=== PATIENT | female | born 1940 | race Caucasian/White ===

== ENCOUNTER 2017-10-03 23:01 | Emergency (ER) | payer MEDICARE, BC, SELFPAY ==
[2017-10-03 23:02] VITALS: BP 164/92; PULSE 101; RESP 19; TEMP 36; O2SAT 97; BMI 34.7
--- NOTE | 2017-10-03 23:10 | EKG12_ITS ---
Test Reason : HTN Blood Pressure : / mmHG Vent. Rate : 106 BPM Atrial Rate : 101 BPM P-R Int : 000 ms QRS Dur : 078 ms QT Int : 362 ms P-R-T Axes : 000 001 068 degrees QTc Int : 480 ms Atrial fibrillation Inferior infarct , age undetermined Abnormal ECG Confirmed by JUDAH MARTINEZ, DAISY ([id number]), senior technical editor CHAPITO HILLIARD ([id number]) on 10/05/2017 3:30:17 PM Referred By: Confirmed By:DAISY SO MD
--- NOTE | 2017-10-03 23:15 | ED.RN ---
called for ekg. pt assisted to bathroom by . pt reports, I DO NOT NEED HELP I WILL BE FINE.
--- NOTE | 2017-10-03 23:42 | NURSING ---
NO OLD EKG'S IN MUSE
--- NOTE | 2017-10-04 01:27 | ED.DCSUM_ITS ---
- ER Visit Summary Date of Service: 10/04/17 Chief Complaint: Elevated blood pressure History of Present Illness: The patient is a 76 F presents after calling pharmacist about elevated blood pressure and heart rate at home. History of chronic A. fib. She is on metoprolol 50 mg once a day. No missed doses. Taken off flecainide a week ago by Dr. Mata due to not helping her A. fib. No chest pains. States had transient shortness of breath earlier today. No current symptoms. No cough. No headache, visual changes, nausea or vomiting. Unclear on her normal baseline blood pressure or heart rate at this time. She had a home INR 2.6 today. Physical Examination: General: Alert and oriented ?3, no acute distress HEENT: Normocephalic, atraumatic. Moist mucosa membranes Neck: supple, nontender. Cardiovascular: Regular rate and rhythm, no murmurs Respiratory: Normal breath sounds, symmetric, no distress Abdomen: Soft, nontender, nondistended Extremities: Nontender, no edema, pulses intact ?4 Neuro: no focal neurological deficits. Test Results: EKG A. fib rate of 106, no ST or T-wave changes. Emergency Department Course and Treatment: Patient is a blood pressure 164/92. Recheck 147/95. Patient asymptomatic. EKG A. fib 106, reevaluation she was A. fib in the 90s. Currently back to baseline. Discussed with patient spouse in the room to keep blood pressure checks in the morning at night. Her INR is 2.6 today. She will follow-up as an outpatient, she return if any worsening symptoms. Patient understands and agrees with plan. Treatment Plan: [] Disposition: Discharge Impression: 1. Elevated blood pressure 2. Chronic A. fib This note was generated with [employer] software. It may contain incorrect words, spelling, and punctuation that were not noted in review of the chart prior to signing ED Disposition - Plan for ED Patient: Disposition: Home or Assisted Living Chief Complaint: Hypertension Diagnosis: Elevated blood pressure reading with diagnosis of hypertension, Chronic atrial fibrillation Instructions: ED HTN Established Referrals: Darek Aquino MD [Primary Care Provider] - 3-5 Days Additional Instructions: Take blood pressure recordings in the morning and at night. Monitor symptoms and follow-up with your doctor.
[2017-10-04 01:38] VITALS: BP 147/90; PULSE 99; RESP 18; O2SAT 99
== END 2017-10-04 01:39 | disposition home or self-care (01) ==
LOC: ED 10-04 01:31
PROVIDERS: Emergency Provider Emergency Medicine; Family Provider Internal Medicine; PCP Internal Medicine
DX: I10 Essential (primary) hypertension (principal); I48.2 Chronic atrial fibrillation; E11.9 Type 2 diabetes mellitus without complications; E78.00 Pure hypercholesterolemia, unspecified; Z79.82 Long term (current) use of aspirin; Z79.84 Long term (current) use of oral hypoglycemic drugs; Z79.899 Other long term (current) drug therapy
CPT/HCPCS: 93005; 99282

== ENCOUNTER 2018-05-25 16:14 | Inpatient (IN) | payer MEDICARE, BC, SELFPAY ==
[2018-05-25] VITALS (12 sets, daily range): BP systolic 136–167; BP diastolic 74–121; PULSE 100–122; RESP 18–24; TEMP 36.2–37.2; O2SAT 94–100; BMI 34.2; BMI 33.0; BMI 33.1
--- NOTE | 2018-05-25 16:32 | EKG12_ITS ---
Test Reason : LOWER EXT Blood Pressure : / mmHG Vent. Rate : 106 BPM Atrial Rate : 105 BPM P-R Int : 000 ms QRS Dur : 078 ms QT Int : 346 ms P-R-T Axes : 000 048 073 degrees QTc Int : 459 ms Atrial fibrillation with rapid ventricular response Nonspecific T wave abnormality Abnormal ECG Confirmed by JUDAH MARTINEZ, DAISY ([id number]), purchase request editor CHAPITO HILLIARD ([id number]) on 05/29/2018 3:56:17 PM Referred By: CIERRA Confirmed By:DAISY SO MD
--- NOTE | 2018-05-25 16:32 | CT_ITS ---
STUDY: CT BRAIN WITHOUT CONTRAST REASON FOR EXAM: Female, 77 years old. Headache after a fall RADIATION DOSAGE (If Supplied By Facility): CTDIvol = ( 44.99 ) mGy, DLP = ( 745.49 ) mGycm TECHNIQUE: Transaxial CT imaging of the brain was performed without administration of intravenous contrast material. Individualized dose optimization techniques were used for this CT. COMPARISON: None. FINDINGS: Normal soft tissue structures. Normal calvarium. There is mild cerebral atrophy with widening of the extra-axial spaces and ventricular dilatation. Normal white matter tracts of the cerebral hemispheres. Normal basal ganglia and thalami. Normal brainstem. Normal cerebellum. There is no intracranial hemorrhage. Old left parietal lobe infarct Normal visualized paranasal sinuses. CT/Brain/Head without Contrast IMPRESSION: Chronic involutional changes of the brain. No acute hemorrhage No demonstrated skull fracture or scalp hematoma Electronically Signed: Bishop Marino MD at 17:17 EDT , Service support ,
--- NOTE | 2018-05-25 16:33 | RAD_ITS ---
STUDY: X-RAY - PELVIS AND RIGHT HIP REASON FOR EXAM: Female, 77 years old. Pain after a fall TECHNIQUE: Radiological exam, hip, unilateral, with pelvis when performed; 2 or 3 views. 3 views. COMPARISON: None. FINDINGS: There is a non-specific bowel gas pattern. Normal visualized soft tissue structures. There is diffuse demineralization of the osseous structures. There is narrowing with cortical sclerosis and osteophyte formation of the sacroiliac joint consistent with degenerative osteoarthritic changes. Normal bilateral superior and inferior pubic rami. Normal pubic symphysis. Normal bilateral ischial tuberosities. There are subtle serpiginous lucencies in the right femoral head not seen on the left and a subtle fracture is suspected. Normal acetabulum. There is mild articular joint space narrowing of the hip. Surgical hardware in the proximal femur intact and free of complication. RAD/HIP, UNI W/ Pelvis 2-3 Views IMPRESSION: Serpiginous lucencies in the right femoral head suspicious for nondisplaced fracture. Consider CT for confirmation. Degenerative arthrosis Surgical hardware in the proximal right femur free of complication Electronically Signed: Bishop Marino MD at 18:05 EDT , Service support ,
[2018-05-25 16:51] LABS: Absolute Lymphocyte Count 1.24 X10^3/ul (0.83-4.51); Absolute Neutrophil Count 8.4 X10^3/uL (2.0-7.7); Basophil# 0.02 X10^3/uL; Basophil% 0.2 % (0-1); Eosinophil# 0.02 X10^3/uL; Eosinophils% 0.2 % (0-5); Hematocrit 42.7 % (37-47); Hemoglobin 14.1 g/dl (12.0-15.0); Lymphocyte # 1.24 X10^3/ul (4.0); Lymphocyte % 12.1 % (19-41); Mean Corpuscular Hgb 30.8 pg (27.0-32.0); Mean Corpuscular Volume 93.2 fL (81-99); Mean Platelet Vol. 10.1 fl (6.2-12.0); Monocyte# 0.48 X10^3/uL; Monocyte% 4.7 % (0-10); Neutrophil # 8.39 X10^3/uL (2.7-7.7); Neutrophil % 81.7 % (47-70); Platelet Count 241 K/mm3 (150-450); RBC Distribution Width CV 12.5 % (11.6-14.6); RBC Distribution Width SD 42.1 fl (35.1-43.9); Red Blood Count 4.58 M/mm3 (4.2-5.4); White Blood Count 10.3 K/mm3 (4.4-11.0)
[2018-05-25 17:02] LABS: International Normalized Ratio 2.4; Prothrombin Time (Protime)PT. 26.4 SECONDS (11.7-14.9)
--- NOTE | 2018-05-25 17:10 | RAD_ITS ---
STUDY: X-RAY CHEST REASON FOR EXAM: Female, 77 years old. Chest pain after trauma TECHNIQUE: Single AP portable view of the chest. COMPARISON: None. FINDINGS: EKG leads overlie the chest The lungs are clear and expanded. There is no demonstrated pleural abnormality. Normal size heart. Normal mediastinum and ralph. Normal visualized pulmonary arteries. Normal visualized aortic arch and descending thoracic aorta. Normal visualized thoracic spine. Normal visualized ribs, clavicles, and shoulders. There is no demonstrated abnormality of the visualized soft tissue structures of the upper abdomen. RAD/Chest 1 View IMPRESSION: No acute pulmonary process Electronically Signed: Bishop Marino MD at 18:00 EDT , Service support ,
[2018-05-25 17:11] LABS: POSITIVE COUNT NO; POSITIVE DIFFERENTIAL NO; POSITIVE MORPHOLOGY NO
[2018-05-25 17:15] LABS: AST(SGOT) 19 U/L (15-37); Alanine Aminotransfer ALT/SGPT 22 U/L (13-56); Albumin, Serum 3.8 g/dL (3.2-5.0); Alkaline Phosphatase 79 U/L (45-117); Anion Gap 13 (5-15); BUN 8 mg/dL (7-18); BUN/Creat Ratio 7.5 RATIO (10-20); Calcium,Total 8.8 mg/dL (8.5-10.1); Chloride 100 mmol/L (98-107); Creatinine, Serum 1.06 mg/dL (0.55-1.02); EST Glomerular Filtration Rate 53 mL/min (>60); Est Glom Filt Rate - Afr Amer 65 mL/min (>60); Estimated Creatinine Clearance 39.99 ml/min; Globulin 3.9 g/dL (2.2-4.2); Glucose 208 mg/dL (74-106); Protein, Total 7.7 g/dL (6.4-8.2); Sodium Level 136 mmol/L (136-145)
--- NOTE | 2018-05-25 18:26 | ED.RN ---
family pcp calls and states that morphine in small doses should work for pt. dr keys
[2018-05-25] MEDS: LORazepam 2 MG/ML Syringe 0.5 MG IV (18:29)
--- NOTE | 2018-05-25 18:55 | ED.RN ---
pt o2 sat drops. pt placed on 02. pt had severe whole body shaking after ativan. dr in room. pt o2 dropped. pt placed on nonrebreather. family at bedside
[2018-05-25] MEDS: Ondansetron 4 MG/2 ML Vial IV (19:06)
--- NOTE | 2018-05-25 19:25 | CT_ITS ---
STUDY: CT RIGHT FEMUR WITHOUT CONTRAST REASON FOR EXAM: Female, 77 years old. Fall. Right hip pain. Abnormal x-ray RADIATION DOSAGE (If Supplied By Facility): CTDIvol = ( 28.81 ) mGy, DLP = ( 1264.20 ) mGycm TECHNIQUE: Transaxial CT imaging of the femur was performed. Sagittal and coronal images were reconstructed. Individualized dose optimization techniques were used for this CT. COMPARISON: X-ray. FINDINGS: There is intramedullary gerard in the shaft of the femur extending to the knee. There is acute impacted subcapital fracture of the right femoral neck. There is acute nondisplaced fracture of the right inferior pubic ramus. There are atherosclerotic calcifications. There is Calero catheter in the bladder. Normal size uterus. No dilated loops of bowel. Arthritic change of the lower spine. CT/Extremity Lower without Contra IMPRESSION: Subcapital fracture of the right femoral neck. Fracture of the right inferior pubic ramus. Electronically Signed: Hung Mckenna MD at 20:04 EDT , Service support ,
--- NOTE | 2018-05-25 20:12 | ED.VISSUMM ---
- ER Visit Summary Date of Service: 05/25/18 Chief Complaint: Right hip injury History of Present Illness: The patient is a 77 F who presents by private vehicle after a fall. She went out to dinner was walking in the parking lot (it is a very rainy day) when she went down a slight decline in due to a nurse she was unable to stop. She fell down causing injury to the right hip. states that she hit her head. Patient denies this. No reported loss of conscious. Patient is on Coumadin for atrial fibrillation. Surgical history is significant for right knee replacement. This was complicated last year when she sustained a right periprosthetic femur fracture. tells me she was treated at [facility]. Though he also tells me that she gets all of her care at [facility]. Patient lists allergies to all narcotics. Physical Examination: Afebrile vital signs are stable. Gen: Well-nourished well-developed Head: Normocephalic atraumatic Eyes: Perrl EOMI ENT: TMs clear no rhinorrhea moist mucous membranes Neck: Supple no lymphadenopathy no JVD nontender CVS: Irregularly irregular heart rhythm tachycardic no murmurs normal S1-S2 Respiratory: No distress clear to auscultation bilaterally chest nontender Abdomen: Soft nontender nondistended normal bowel sounds no masses Back: Nontender Extremity: Right leg shows intact distal pulses and sensation. Pain with logroll. Limited range of motion at the hip joint. No ecchymosis seen. No breaks in the skin. Skin: Normal color no rash Neuro: alert orientated ?3 CN II-XII intact normal strength sensation reflexes Psych: Normal affect normal mood Test Results: X-rays revealed a probable neck fracture. However after reviewing the x-rays myself and the read a asked for a hip CT which demonstrates a subcapital fracture. Brain CT demonstrates no fracture or intracranial hemorrhage. Chest x-ray negative. Basic labs were obtained showed a INR 2.4. EKG A. fib with a rate of 106. Emergency Department Course and Treatment: Patient was having spasms of her musculature and was given 0.5 mg of Ativan. Shortly thereafter she began to become tachycardic and tachypneic. She was shaking. After that the patient became somnolent and required supplemental oxygen. She is gradually improving. Nursing discussed with the that because of her allergies to all narcotics she was not receiving a narcotic. Family spoke with her primary care doctor who stated that she could get morphine in small amounts. Due to her being somnolent and in no obvious distress we did not give any more medications. The patient was discussed with Dr. Griffin and night hospitalist. Plan is admission to the hospital. He was asked that the INR be reversed so we ordered FFP. Impression: 1. Right subcapital hip fracture 2. Coumadin coagulopathy This note was generated with [employer] dictation software. It may contain incorrect words, spelling, and punctuation that were not noted in review of the chart prior to signing ED Disposition - Plan for ED Patient: Disposition: Acute Care [facility] Chief Complaint: Lower Extremity Injury
--- NOTE | 2018-05-25 20:45 | HP.PCM_ITS ---
Problem List (1) Fracture of right femur Status: Acute (2) Chronic atrial fibrillation Status: Chronic (3) Atrial fibrillation with RVR Status: Acute History of Present Illness Date of Admission: 05/25/18 Chief Complaint: fall The patient is a 77 year old F with a significant history of chronic atrial fib fibrillation; hypertension; hyperlipidemia and right knee joint replacement and right femur surgery who presents with a fall. Patient went to a restaurant and fell while leaving the restaurant. Reportedly it was raining. She reported right hip pain after the fall. Her family report that patient had knee replacement 5 years ago in her right knee and right hip replacement about a year and a half ago. Reportedly she is weak at her right lower extremities because of above interventions. Her reported that patient was dizzy earlier in the day. Patient complains of back pain that her family attributes to patient's fall. At the emergency department patient was given Ativan and she became very lethargic. She was hypoxic at the ED and required non rebreather mask.. Reportedly patient has multiple allergies to pain medication. Family talked to PCP and per PCP it is okay to give patient low-dose morphine as needed for pain. Emergency department doctor talked to Dr. Griffin, orthopedic surgeon and plan was to do pinning in a.m. Patient is on Coumadin for A. fib. At the emergency department her INR was noted to be 2.4. Past Medical History Past Medical History (Chronic Problems): Chronic Problems (Last Reviewed 05/26/18 @ 00:25 by Edvin Cruz MD) History of right knee joint replacement (Chronic) [facility] current use of anticoagulant (Chronic) Chronic atrial fibrillation (Chronic) Hypertension (Chronic) Hyperlipidemia (Chronic) Medical History: Medical History (Last Reviewed 05/26/18 @ 00:25 by Edvin Cruz MD) [facility] current use of anticoagulant (Chronic) Z79.01 Chronic atrial fibrillation (Chronic) I48.2 Hypertension (Chronic) I10 Hyperlipidemia (Chronic) E78.5 Allergies enalapril Allergy (Severe, Verified 10/03/17 23:02) ANGIOEDEMA latex Allergy (Severe, Verified 10/03/17 23:02) Hives, rash Penicillins Allergy (Severe, Verified 10/03/17 23:02) Hives shellfish derived Allergy (Severe, Verified 10/03/17 23:02) Hives lisinopril Allergy (Verified 10/03/17 23:02) Shortness of breath cortisone Adverse Reaction (Severe, Verified 10/03/17 23:02) Knee swelled and severe pain with injection of cortisone IVP dye Allergy (Severe, Uncoded 10/03/17 23:02) Head and neck burning adhesive bandages Allergy (Intermediate, Uncoded 10/03/17 23:02) Burning rash narcotics Adverse Reaction (Severe, Uncoded 10/03/17 23:02) confusion Home Medications: Ambulatory Orders Medication Instructions Recorded Aspirin E.C. [Ecotrin] 81 mg PO DAILY@0800 07/17/17 Levothyroxine [Synthroid] 50 mcg PO DAILY 07/17/17 metformin ER 500 mg 24 hr 1,000 mg PO BID 09/16/17 tablet,extended release warfarin 6 mg tablet 6 mg PO DAILY 09/16/17 clonazepam 0.5 mg tablet 0.5 mg PO BID PRN tab 09/20/17 Citalopram [Celexa] 40 mg PO DAILY 10/04/17 Flecainide [Tambocor] 100 mg PO DAILY 10/04/17 Furosemide [Lasix] 20 mg PO DAILY 10/04/17 Losartan/Hydrochlorothiazide 1 tab PO DAILY 05/25/18 [Losartan-Hctz 100-25 mg Tab] Surgical History: Surgical History (Last Reviewed 05/26/18 @ 00:25 by Edvin Cruz MD) History of right knee joint replacement (Chronic) Z96.651 Surgical History: - - History of right hip replacement Lives: Spouse/ Significant Other Smoking Status: Never smoker Alcohol: None - *Family History Maternal Family History: Family History (Last Reviewed 05/26/18 @ 00:37 by Edvin Cruz MD) Mother CAD (coronary artery disease) Myocardial infarction Paternal Family History: Family History (Last Reviewed 05/26/18 @ 00:37 by Edvin Cruz MD) Mother CAD (coronary artery disease) Myocardial infarction Review of Systems Constitutional: Denies: Chills, Fever, Weight Change HEENT: Denies: Head Aches, Sinus Congestion, Sinus Drainage Cardiovascular: Denies: Chest Pain, Palpitations Respiratory: Denies: Cough, Shortness of breath at rest, Sputum production Gastrointestinal: Denies: Abdominal Pain, Nausea, Vomiting Genitourinary: Denies: Dysuria Musculoskeletal: Reports: Back Pain, - - Right hip pain. Denies: Neck Pain Skin: Denies: Rash, Wounds Neurological: Denies: Numbness, Tingling, Focal weakness Psychiatric: Denies: Anxiety, Depression, Homicidal Ideations, Suicidal Ideations Hematologic/ Lymphatic: Denies: Easy Bruising, Easy Bleeding VTE Information - Inpt Only VTE Present on Admission: No VTE Mechan Device Prophylaxis: SCD's VTE Pharm Prophylaxis ordered?: No Reason prophylaxis not ordered:: Treatment Not Indicated - On recent anticoagulation. Patient Problems: Active and Suspected Problems (Last Reviewed 05/26/18 @ 00:25 by Edvin Cruz MD) Fracture of right femur (Acute) Atrial fibrillation with RVR (Acute) - Physical Exam General: Lethargic HEENT: Atraumatic, PERRLA, EOMI, Normocephalic Neck: Supple, No JVD, Negative Carotid Bruits Lungs: Clear to auscultation, Normal air movement Cardiovascular: Regular rate, No murmurs Abdomen: Bowel Sounds Present, Soft, Non Tender Extremities: No edema, Capillary Refill Less than 3 Seconds, Tenderness - Right ankle Skin: No rashes, No breakdown Musculoskeletal: No Tenderness to Palpation of Joints or Extremities Neurological: Cranial nerves II-XII grossly intact Psych/Mental Status: Normal Affect, Appropriate Vital Signs Temp Pulse Resp BP Pulse Ox 97.2 F L 109 H 20 H 149/79 H 99 05/25/18 16:15 05/25/18 20:18 05/25/18 20:18 05/25/18 20:18 05/25/18 20:18 Oxygen Flow Rate (L/min) 15 Oxygen Delivery Method Non-Rebreather Weight: 93.455 kg Body Mass Index (BMI) 34.2 Laboratory Tests Past 24 Hrs 05/25/18 05/25/18 05/25/18 16:25 16:25 16:25 WBC 10.3 RBC 4.58 Hgb 14.1 Hct 42.7 MCV 93.2 MCH 30.8 MCHC 33.0 RDW 12.5 RDW Differential 42.1 Plt Count 241 MPV 10.1 Immature Gran % (Auto) 1.100 H Neut % (Auto) 81.7 H Lymph % (Auto) 12.1 L [place] % (Auto) 4.7 Eos % (Auto) 0.2 Baso % (Auto) 0.2 Absolute Neuts (auto) 8.4 H Absolute Lymphs (auto) 1.24 Total Counted Not Reportable PT 26.4 H INR 2.4 APTT 52.0 H Sodium 136 Potassium 4.0 Chloride 100 Carbon Dioxide 23.0 Anion Gap 13 BUN 8 Creatinine 1.06 H Estim Creat Clear Calc 39.99 Est GFR (MDRD) Af Amer 65 Est GFR (MDRD) Non-Af 53 L BUN/Creatinine Ratio 7.5 L Glucose 208 H Calcium 8.8 Total Bilirubin 1.10 H AST 19 ALT 22 Alkaline Phosphatase 79 Total Protein 7.7 Albumin 3.8 Globulin 3.9 Albumin/Globulin Ratio 1.0 Blood Type 05/25/18 16:25 WBC RBC Hgb Hct MCV MCH MCHC RDW RDW Differential Plt Count MPV Immature Gran % (Auto) Neut % (Auto) Lymph % (Auto) [place] % (Auto) Eos % (Auto) Baso % (Auto) Absolute Neuts (auto) Absolute Lymphs (auto) Total Counted PT INR APTT Sodium Potassium Chloride Carbon Dioxide Anion Gap BUN Creatinine Estim Creat Clear Calc Est GFR (MDRD) Af Amer Est GFR (MDRD) Non-Af BUN/Creatinine Ratio Glucose Calcium Total Bilirubin AST ALT Alkaline Phosphatase Total Protein Albumin Globulin Albumin/Globulin Ratio Blood Type Pending Assessment/Plan All Active Problems (Last Reviewed 05/26/18 @ 00:25 by Edvin Cruz MD) Fracture of right femur (Acute) Atrial fibrillation with RVR (Acute) The patient is a 77 year old F with a significant history of chronic atrial fib fibrillation; hypertension; hyperlipidemia and right knee joint replacement and right femur surgery who presents with a fall and found to have radiographic evidence of subcapital fracture of the right femoral neck; and fracture of the right inferior pubic ramus Subcapital fracture of the right femoral neck; and fracture of the right inferior pubic ramus. Hip/pelvis x-ray independently reviewed confirms subcutaneous lucency in the right femoral head suspicious for nondisplaced fracture. Lower extremity CT showed a subcapital fracture of the right femoral neck; and fracture of the right inferior pubic ramus. Reportedly patient is sensitive to many narcotic pain medication and she was severely lethargic after receiving Ativan at emergency department and was found to be hypoxic requiring nonrebreather mask. Because of persistent pain will order morphine 0.5 mg IV every 6 hours as needed for pain Tylenol scheduled for pain. Aspirin held because of surgery. Fresh frozen plasma at emergency department not given. Will order vitamin K 5 mg IV x1 dose; and repeat INR late morning. Plan is to get INR below 1.5 for orthopedic procedure. Patient kept n.p.o. for procedure Patient has no chest pain. EKG showed A. fib with rapid ventricular response (106). On monitor patient was ranging from 100 to mid 130s. Will order echocardiogram. If echocardiogram is ok patient will be low risk for orthopedic procedure. Recommend minimal sedation for procedure and careful respiratory monitoring topher-operatively. Anticipate patient may need to be placed on non invasive ventilation after her procedure judging from how she became lethargic and hypoxic with 0.5mg of ativan at the ED. Orthopedic consult. Right ankle pain. From trauma from fall X-ray right ankle ordered. Lumbar Pain Likely from trauma from fall Shared decision with family to get imaging. Lumbar X-ray ordered Fall Etiology of her fall is unclear at this time. It could be mechanical from her right-sided weakness; it could also be from her Afib. Patient worked with PT and OT Vitamin B12 and vitamin D ordered. A. fib with RVR Placed on PCU for telemetry monitoring. Flecainide continued Cardizem bolus and drip ordered. Coumadin on hold because of surgery vitamin K given to reverse INR. Diabetes Blood glucose not within goal at the time of admission. Home metformin held. Correction scale insulin with sliding scale ordered. DVT prophylaxis With INR therapeutic and patient having surgery chemical anticoagulation was not started. SCD ordered. Code Visit Inpatient E&M: 93128 Init Hosp L3
--- NOTE | 2018-05-25 22:02 | RAD_ITS ---
HISTORY: Falling injury Comparison: None Findings: No fracture, dislocation, or acute disease identified. The tibiotalar joint space appears preserved. The ankle mortise is not widened. As visualized, the soft tissues are negative. Plantar calcaneal spur. Incidental note of degenerative arthritis of the right midfoot. RAD/Ankle 2 Views IMPRESSION: 1. Negative for fracture or acute osseous abnormality. 2. Chronic changes, as above. at 0007 Reported and signed by: Sean Marte MD Electronically Signed: Sean Marte, at 0:04 EDT Tel , Service support ,
[2018-05-25 22:50] LABS: Vitamin B12 413 pg/mL (211-911)
[2018-05-25] MEDS: Insulin Lispro 100 UNIT/ML INSULN.PEN SQ (23:02)
[2018-05-25] MEDS: dilTIAZem 25 MG/5 ML Vial 5 MG IV BOLUS (23:03)
[2018-05-25] MEDS: Acetaminophen 500 MG Tablet PO (23:04)
[2018-05-26] VITALS (31 sets, daily range): BP systolic 116–159; BP diastolic 65–94; PULSE 86–117; RESP 16–32; TEMP 36.1–37.6; O2SAT 90–98; BMI 33.0; BMI 33.1
[2018-05-26] MEDS: Morphine 2 MG/ML Syringe 0.5 MG IV ×2 (00:43→06:43)
[2018-05-26] MEDS: 0.9% NaCl Peripheral Flush Adult/Peds IV ×3 (00:43→06:42)
[2018-05-26 00:46] LABS: Bedside Glucose 205 mg/dL (70-110)
--- NOTE | 2018-05-26 00:52 | ECHOD_ITS ---
Reason For Study: Afib/Flutter Procedure This was a 2D Doppler, Color Flow transthoracic echocardiogram. Technically difficult due to patient condition. Unable to utilize Definity due to increased pressures, and unable to roll patient onto left side due to hip fracture. Exam performed portable in patient room. Left Ventricle Normal LV size. Left ventricular systolic function is normal. The estimated ejection fraction is 55 %. Stage 3 diastolic dysfunction. No regional wall motion abnormalities noted. Right Ventricle Normal RV size. Mild global right ventricular systolic dysfunction. Atria The left atrium is moderately enlarged. The right atrium is mildly enlarged. Mitral Valve Normal mitral valve. Mild (1+) eccentric mitral valve insufficiency. Tricuspid Valve Normal tricuspid valve. Mild to moderate (1-2+) tricuspid valve insufficiency. Pulmonary artery systolic pressure is 55 mmHg. Moderate pulmonary hypertension. Aortic Valve Normal aortic valve. Trisinus/trileaflet aortic valve. Pulmonic Valve Normal pulmonic valve. Great Vessels Normal aortic root. The pulmonary artery is normal size. Normal inferior vena cava. Pericardium/Pleural No pericardial effusion. MMode/2D Measurements & Calculations LVIDd: 3.5 cm IVSd: 1.5 cm Ao root diam: 3.7 cm LVIDs: 1.7 cm LVPWd: 1.0 cm LA dimension: 3.9 cm RVDd: 3.5 cm FS: 51.1 % LAV(MOD-bp): 66.8 ml LA A4 area: 24.5 cm2 RA A4 area: 21.5 cm2 LAV(MOD-bp) Indexed: 33.9 ml/m2 LAV(MOD-sp2): 63.6 ml LAV(MOD-sp4): 69.8 ml Time Measurements MV dec time: 0.16 sec Doppler Measurements & Calculations MV E max sky: 98.1 cm/sec Lat Peak E' Sky: 7.7 cm/sec Med Peak E' Sky: 7.4 cm/sec MV A max sky: 31.3 cm/sec E/E' lat: 12.7 E/E' med: 13.2 MV E/A: 3.1 MV V2 max: 112.2 cm/sec Ao V2 max: 82.0 cm/sec LV V1 max: 80.7 cm/sec MV max P.1 mmHg Ao max P.7 mmHg LV V1 max P.6 mmHg MV V2 mean: 56.7 cm/sec Ao V2 mean: 59.7 cm/sec LV V1 mean P.4 mmHg MV mean P.6 mmHg Ao mean P.6 mmHg LV V1 mean: 55.9 cm/sec MV V2 VTI: 26.4 cm Ao V2 VTI: 14.9 cm LV V1 VTI: 15.3 cm PA V2 max: 84.4 cm/sec TR max sky: 353.7 cm/sec TR max P.1 mmHg Interpretation Summary Normal LV size. Left ventricular systolic function is normal. The estimated ejection fraction is 55 %. Stage 3 diastolic dysfunction. The left atrium is moderately enlarged. Pulmonary artery systolic pressure is 55 mmHg. Moderate pulmonary hypertension. Ordering Physician: Edvin Cruz Referring Physician: Darek Aquino Performed By: Curtis Fernández RCS
[2018-05-26] MEDS: Acetaminophen 500 MG Tablet PO ×3 (05:44→23:35)
--- NOTE | 2018-05-26 05:55 | EKG12_ITS ---
Test Reason : AM EKG Blood Pressure : / mmHG Vent. Rate : 088 BPM Atrial Rate : 104 BPM P-R Int : 000 ms QRS Dur : 080 ms QT Int : 344 ms P-R-T Axes : 000 079 254 degrees QTc Int : 416 ms Atrial fibrillation Cannot rule out Inferior infarct , age undetermined Abnormal ECG When compared with ECG of 25-MAY-2018 17:21, MANUAL COMPARISON REQUIRED, DATA IS UNCONFIRMED Confirmed by JUDAH MARTINEZ, DAISY ([id number]), news assignment editor CHAPITO HILLIARD ([id number]) on 06/01/2018 4:09:55 PM Referred By: MAYELIN Confirmed By:DAISY SO MD
[2018-05-26 05:56] LABS: Bedside Glucose 191 mg/dL (70-110)
[2018-05-26 06:00] LABS: Hematocrit 40.6 % (37-47); Hemoglobin 13.2 g/dl (12.0-15.0); Mean Corp Hgb Conc 32.5 g/gl (32-36); Mean Corpuscular Hgb 30.2 pg (27.0-32.0); Mean Corpuscular Volume 92.9 fL (81-99); Platelet Count 207 K/mm3 (150-450); RBC Distribution Width CV 12.7 % (11.6-14.6); RBC Distribution Width SD 42.4 fl (35.1-43.9); Red Blood Count 4.37 M/mm3 (4.2-5.4); White Blood Count 9.5 K/mm3 (4.4-11.0)
[2018-05-26 06:03] LABS: Scan Indicated on CBC? Y/N NO
[2018-05-26 06:04] LABS: International Normalized Ratio 1.6
[2018-05-26 06:29] LABS: Anion Gap 10 (5-15); BUN 12 mg/dL (7-18); Calcium,Total 8.6 mg/dL (8.5-10.1); Chloride 103 mmol/L (98-107); Creatinine, Serum 0.67 mg/dL (0.55-1.02); EST Glomerular Filtration Rate 91 mL/min (>60); Est Glom Filt Rate - Afr Amer 110 mL/min (>60); Estimated Creatinine Clearance 42.39 ml/min; Glucose 188 mg/dL (74-106); Potassium 3.8 mmol/L (3.5-5.1); Sodium Level 137 mmol/L (136-145)
[2018-05-26] MEDS: Insulin Lispro 100 UNIT/ML INSULN.PEN SQ (06:42)
--- NOTE | 2018-05-26 10:16 | CASEMGMT ---
RN SANDOR Assessment. Intro role of CM to patient who is very sleepy @ this time, and and daughter. Pt presented to ER with R hip and R inferior pubic ramus fracture after fall in restaurant. Plan is for surgery today. PCP: Dr. Aquino [facility] Prescription coverage: yes Living arrangements: Lives in one story home, 4 steps into home with her . Transportation: pt drives, but family can provide transportation if needed. DME: Walker, cane states pt was independent prior to admission, was not using ambulatory DME consistently. Was able to perform independent ADL's, but this was becoming more difficult for her. -Discussed PT/OT would be working with pt after surgery and we would review recommendations for assistance needed on dc. Discussed Inpt Rehab/SNF on dc for medical monitoring and rehabilitation. agrees pt may need higher level of care, but states she will want to go home. Discussed Home Health nursing and PT is available if pt returns home and anticipated visits would be 2-3x per week. RN SANDOR let family know CM/SW will follow after surgery and assist with any dc need. DC PLAN: undetermined
--- NOTE | 2018-05-26 10:45 | PCM.PN.HOSP ---
Patient Problems: Active and Suspected Problems (Last Reviewed 05/26/18 @ 00:25 by Edvin Cruz MD) Fracture of right femur (Acute) Atrial fibrillation with RVR (Acute) Subjective: still with pain, but dozing off. Vitals/I&O's: Vital Signs Temp Pulse Resp BP Pulse Ox 36.4 C L 104 H 23 H 141/94 H 95 05/26/18 07:00 05/26/18 07:16 05/26/18 07:00 05/26/18 07:00 05/26/18 07:00 Oxygen Flow Rate (L/min) 3 Oxygen Delivery Method Nasal Cannula Weight: 90.2 kg Body Mass Index (BMI) 33.0 Intake and Output for Last 24 Hours 05/24/18 05/25/18 05/26/18 23:59 23:59 23:59 Intake Total 258.7 / 258.7 Output Total 625 / 625 Balance -366.3 / -366.3 General: No apparent distress, - - dozes off during my encounter. HEENT: Atraumatic, Normocephalic Oral: Moist Mucosa, No Gingival or Mucosal Lesions/ Ulcerations Neck: No Nodes, Thyroid Normal Size and Texture Lungs: Clear to auscultation, Normal air movement, No rhonchi, No wheeze Cardiovascular: Regular rate, Regular Rhythm, Normal S1, Normal S2 Abdomen: Bowel Sounds Present, Soft, Non Tender, Non-Distended, No Hepato-splenomegaly Extremities: No edema, No Calf Tenderness Skin: No rashes, No breakdown Musculoskeletal: No Tenderness to Palpation of Joints or Extremities, No Muscle Wasting Psych/Mental Status: Normal Affect, Appropriate Laboratory Results 05/25/18 16:25: WBC 10.3, RBC 4.58, Hgb 14.1, Hct 42.7, MCV 93.2, MCH 30.8, MCHC 33.0, RDW 12.5, RDW Differential 42.1, Plt Count 241, MPV 10.1, Immature Gran % (Auto) 1.100 H, Neut % (Auto) 81.7 H, Lymph % (Auto) 12.1 L, [place] % (Auto) 4.7, Eos % (Auto) 0.2, Baso % (Auto) 0.2, Absolute Neuts (auto) 8.4 H, Absolute Lymphs (auto) 1.24, Total Counted Not Reportable 05/25/18 16:25: PT 26.4 H, INR 2.4, APTT 52.0 H 05/25/18 16:25: Sodium 136, Potassium 4.0, Chloride 100, Carbon Dioxide 23.0, Anion Gap 13, BUN 8, Creatinine 1.06 H, Estim Creat Clear Calc 39.99, Est GFR (MDRD) Af Amer 65, Est GFR (MDRD) Non-Af 53 L, BUN/Creatinine Ratio 7.5 L, Glucose 208 H, Calcium 8.8, Total Bilirubin 1.10 H, AST 19, ALT 22, Alkaline Phosphatase 79, Total Protein 7.7, Albumin 3.8, Globulin 3.9, Albumin/Globulin Ratio 1.0 05/25/18 16:25: Blood Type O POSITIVE 05/25/18 16:25: Vitamin B12 413, Vitamin D 25-Hydroxy 15.0 L 05/25/18 22:48: POC Glucose 205 H 05/26/18 05:25: Sodium 137, Potassium 3.8, Chloride 103, Carbon Dioxide 24.0, Anion Gap 10, BUN 12, Creatinine 0.67, Estim Creat Clear Calc 42.39, Est GFR (MDRD) Af Amer 110, Est GFR (MDRD) Non-Af 91, BUN/Creatinine Ratio 18.0, Glucose 188 H, Calcium 8.6 05/26/18 05:25: WBC 9.5, RBC 4.37, Hgb 13.2, Hct 40.6, MCV 92.9, MCH 30.2, MCHC 32.5, RDW 12.7, RDW Differential 42.4, Plt Count 207, MPV 10.0 05/26/18 05:25: PT 19.0 H, INR 1.6 05/26/18 05:25: TSH 1.40 05/26/18 05:25: Hemoglobin A1c 6.0 05/26/18 05:43: POC Glucose 191 H Current Medications Acetaminophen (Tylenol) 500 mg PO Q6 [facility] Last Admin: 05/26/18 05:44 Dose: 500 mg Citalopram Hydrobromide (Celexa) 40 mg PO DAILY [facility] Dextrose (D50w Syringe) 0 gm IV X1 PRN; Protocol PRN Reason: Hypoglycemia Flecainide Acetate (Tambocor) 100 mg PO DAILY [facility] Furosemide (Lasix) 20 mg PO DAILY [facility] Glucagon () 1 mg IM .X1 PRN PRN Reason: Hypoglycemia Hydrochlorothiazide (Hctz) 25 mg PO DAILY [facility] Insulin Human Lispro (Humalog Kwikpen (Bkc)) 0 unit SQ Q6 JIMMY; Protocol Last Admin: 05/26/18 06:42 Dose: 2 units Levothyroxine Sodium (Synthroid) 50 mcg PO DAILY@0600 JIMMY Last Admin: 05/26/18 05:48 Dose: Not Given Losartan Potassium (Cozaar) 100 mg PO DAILY [facility] Magnesium Hydroxide (Milk Of Magnesia) 30 ml PO DAILY PRN PRN Reason: Constipation Morphine Sulfate () 0.5 mg IV Q6H PRN PRN PRN Reason: PAIN Last Admin: 05/26/18 06:43 Dose: 0.5 mg Nutritional Formula (Lactose Free) (Glucerna Shake) 120 ml PO TIDCM JIMMY Sodium Chloride () 5 - 30 ml IV UD PRN PRN Reason: SALINE FLUSH Last Admin: 05/26/18 06:42 Dose: 10 ml Medical Necessity - Tobacco Use Smoking Status: Never smoker Assessment/Plan All Active Problems (Last Reviewed 05/26/18 @ 00:25 by Edvin Cruz MD) Fracture of right femur (Acute) Atrial fibrillation with RVR (Acute) 1. right femoral neck fracture. plan for OR today around 1500 medically stable to proceed. 2. Afib with RVR currently rate controlled dc cardizem gtt continue flecanaide. may have been exacerbated by fall and pain 3. toxic encephalopathy 2/2 ativan pt very sensitive to medications dozing off during encounter d/w family, that with narcotics there needs to be a balance b/w pain control and function. Informed them that I will not be increasing her pain medications at this time. 4. DVT proph: SCDs for now. Code Visit Inpatient E&M: [id number] Subs Hosp L2
--- NOTE | 2018-05-26 10:52 | PN_ITS ---
Patient Problems: Active and Suspected Problems (Last Reviewed 05/26/18 @ 00:25 by Edvin Cruz MD) Fracture of right femur (Acute) Atrial fibrillation with RVR (Acute) Subjective: still with pain, but dozing off. Vitals/I&O's: Vital Signs Temp Pulse Resp BP Pulse Ox 36.4 C L 104 H 23 H 141/94 H 95 05/26/18 07:00 05/26/18 07:16 05/26/18 07:00 05/26/18 07:00 05/26/18 07:00 Oxygen Flow Rate (L/min) 3 Oxygen Delivery Method Nasal Cannula Weight: 90.2 kg Body Mass Index (BMI) 33.0 Intake and Output for Last 24 Hours 05/24/18 05/25/18 05/26/18 23:59 23:59 23:59 Intake Total 258.7 / 258.7 Output Total 625 / 625 Balance -366.3 / -366.3 General: No apparent distress, - - dozes off during my encounter. HEENT: Atraumatic, Normocephalic Oral: Moist Mucosa, No Gingival or Mucosal Lesions/ Ulcerations Neck: No Nodes, Thyroid Normal Size and Texture Lungs: Clear to auscultation, Normal air movement, No rhonchi, No wheeze Cardiovascular: Regular rate, Regular Rhythm, Normal S1, Normal S2 Abdomen: Bowel Sounds Present, Soft, Non Tender, Non-Distended, No Hepato-sp lenomegaly Extremities: No edema, No Calf Tenderness Skin: No rashes, No breakdown Musculoskeletal: No Tenderness to Palpation of Joints or Extremities, No Muscle Wasting Psych/Mental Status: Normal Affect, Appropriate Laboratory Results 05/25/18 16:25: WBC 10.3, RBC 4.58, Hgb 14.1, Hct 42.7, MCV 93.2, MCH 30.8, MCHC 33.0, RDW 12.5, RDW Differential 42.1, Plt Count 241, MPV 10.1, Immature Gran % (Auto) 1.100 H, Neut % (Auto) 81.7 H, Lymph % (Auto) 12.1 L, [place] % (Auto) 4.7, Eos % (Auto) 0.2, Baso % (Auto) 0.2, Absolute Neuts (auto) 8.4 H, Absolute Lymphs (auto) 1.24, Total Counted Not Reportable 05/25/18 16:25: PT 26.4 H, INR 2.4, APTT 52.0 H 05/25/18 16:25: Sodium 136, Potassium 4.0, Chloride 100, Carbon Dioxide 23.0, Anion Gap 13, BUN 8, Creatinine 1.06 H, Estim Creat Clear Calc 39.99, Est GFR (MDRD) Af Amer 65, Est GFR (MDRD) Non-Af 53 L, BUN/Creatinine Ratio 7.5 L, Glucose 208 H, Calcium 8.8, Total Bilirubin 1.10 H, AST 19, ALT 22, Alkaline Phosphatase 79, Total Protein 7.7, Albumin 3.8, Globulin 3.9, Albumin/Globulin Ratio 1.0 05/25/18 16:25: Blood Type O POSITIVE 05/25/18 16:25: Vitamin B12 413, Vitamin D 25-Hydroxy 15.0 L 05/25/18 22:48: POC Glucose 205 H 05/26/18 05:25: Sodium 137, Potassium 3.8, Chloride 103, Carbon Dioxide 24.0, Anion Gap 10, BUN 12, Creatinine 0.67, Estim Creat Clear Calc 42.39, Est GFR (MDRD) Af Amer 110, Est GFR (MDRD) Non-Af 91, BUN/Creatinine Ratio 18.0, Glucose 188 H, Calcium 8.6 05/26/18 05:25: WBC 9.5, RBC 4.37, Hgb 13.2, Hct 40.6, MCV 92.9, MCH 30.2, MCHC 32.5, RDW 12.7, RDW Differential 42.4, Plt Count 207, MPV 10.0 05/26/18 05:25: PT 19.0 H, INR 1.6 05/26/18 05:25: TSH 1.40 05/26/18 05:25: Hemoglobin A1c 6.0 05/26/18 05:43: POC Glucose 191 H Current Medications Acetaminophen (Tylenol) 500 mg PO Q6 COUNTS [facility]CLUDE 234 BEDS AT THE [facility] Last Admin: 05/26/18 05:44 Dose: 500 mg Citalopram Hydrobromide (Celexa) 40 mg PO DAILY COUNTS INCLUDE 234 BEDS AT THE [facility] Dextrose (D50w Syringe) 0 gm IV X1 PRN; Protocol PRN Reason: Hypoglycemia Flecainide Acetate (Tambocor) 100 mg PO DAILY COUNTS INCLUDE 234 BEDS AT THE [facility] Furosemide (Lasix) 20 mg PO DAILY COUNTS INCLUDE 234 BEDS AT THE [facility] Glucagon () 1 mg IM .X1 PRN PRN Reason: Hypoglycemia Hydrochlorothiazide (Hctz) 25 mg PO DAILY COUNTS INCLUDE 234 BEDS AT THE [facility] Insulin Human Lispro (Humalog Kwikpen (Bkc)) 0 unit SQ Q6 COUNTS INCLUDE 234 BEDS AT THE [facility]; Protocol Last Admin: 05/26/18 06:42 Dose: 2 units Levothyroxine Sodium (Synthroid) 50 mcg PO DAILY@0600 JIMMY Last Admin: 05/26/18 05:48 Dose: Not Given Losartan Potassium (Cozaar) 100 mg PO DAILY COUNTS INCLUDE 234 BEDS AT THE [facility] Magnesium Hydroxide (Milk Of Magnesia) 30 ml PO DAILY PRN PRN Reason: Constipation Morphine Sulfate () 0.5 mg IV Q6H PRN PRN PRN Reason: PAIN Last Admin: 05/26/18 06:43 Dose: 0.5 mg Nutritional Formula (Lactose Free) (Glucerna Shake) 120 ml PO TIDCM JIMMY Sodium Chloride () 5 - 30 ml IV UD PRN PRN Reason: SALINE FLUSH Last Admin: 05/26/18 06:42 Dose: 10 ml Medical Necessity - Tobacco Use Smoking Status: Never smoker Assessment/Plan All Active Problems (Last Reviewed 05/26/18 @ 00:25 by Edvin Cruz MD) Fracture of right femur (Acute) Atrial fibrillation with RVR (Acute) 1. right femoral neck fracture. * plan for OR today around 1500 * medically stable to proceed. 2. Afib with RVR * currently rate controlled * dc cardizem gtt * continue flecanaide. * may have been exacerbated by fall and pain 3. toxic encephalopathy * 2/2 ativan * pt very sensitive to medications * dozing off during encounter * d/w family, that with narcotics there needs to be a balance b/w pain control and function. Informed them that I will not be increasing her pain medications at this time. 4. DVT proph: SCDs for now. Code Visit Inpatient E&M: [id number] Subs Hosp L2
--- NOTE | 2018-05-26 11:42 | RAD_ITS ---
STUDY: X-RAY - LUMBAR SPINE REASON FOR EXAM: Female, 77 years old. Back pain after fall TECHNIQUE: 2 view(s) of the lumbar spine were obtained. COMPARISON: None FINDINGS: Normal lumbar lordosis. There is no substantial scoliosis. There is a normal alignment of the vertebrae. There is multilevel endplate spondylosis of the lumbar vertebrae. There is multi-level degenerative disc disease with multi-level disc space narrowing. There is no demonstrated fracture. There is atherosclerotic calcification of the abdominal aorta without a demonstrated aneurysm. RAD/Lumbar Spine 2 or 3 Views IMPRESSION: Degenerative changes of the spine, as detailed above. Electronically Signed: Bishop Marino MD at 12:07 EDT , Service support ,
[2018-05-26 11:57] LABS: International Normalized Ratio 1.4; Prothrombin Time (Protime)PT. 17.4 SECONDS (11.7-14.9)
[2018-05-26 12:31] LABS: Bedside Glucose 159 mg/dL (70-110)
[2018-05-26 16:16] LABS: Bedside Glucose 124 mg/dL (70-110)
--- NOTE | 2018-05-26 17:59 | CON.PCM_ITS ---
Reason for Consult Date of Consultation: 05/26/18 Reason for Consultation: Right hip pain History of Present Illness: The patient is a 77 year old F with history of diabetes mellitus and atrial fibrillation treated with Coumadin presents today after a fall yesterday with right hip pain. Patient was running through the rain trying to get to her car when she slipped and fell onto her right hip. Since that time she has had right hip pain. She was unable to stand back up. She is also had some low back pain since that time. Patient reports 8 out of 10 pain in her groin at this time. She also has some back pain. She also was complaining of some ankle pain. She denies any lower extremity numbness and tingling. No loss of bowel or bladder control. No neuro deficits. Patient did have an INR of 2.4 last night which was reversed for surgery today. Patient is unable to bear weight at this time. Pain is better with bedrest and immobilization. Worse with motion and weightbearing. It is a dull achy pain in her right hip. Past Medical History Past Medical History (Chronic Problems): Chronic Problems (Last Reviewed 05/26/18 @ 00:25 by Edvin Cruz MD) History of right knee joint replacement (Chronic) [facility] current use of anticoagulant (Chronic) Chronic atrial fibrillation (Chronic) Hypertension (Chronic) Hyperlipidemia (Chronic) Medical History: Medical History (Last Reviewed 05/26/18 @ 00:25 by Edvin Cruz MD) [facility] current use of anticoagulant (Chronic) Z79.01 Chronic atrial fibrillation (Chronic) I48.2 Hypertension (Chronic) I10 Hyperlipidemia (Chronic) E78.5 Allergies enalapril Allergy (Severe, Verified 10/03/17 23:02) ANGIOEDEMA latex Allergy (Severe, Verified 10/03/17 23:02) Hives, rash Penicillins Allergy (Severe, Verified 10/03/17 23:02) Hives shellfish derived Allergy (Severe, Verified 10/03/17 23:02) Hives lisinopril Allergy (Verified 10/03/17 23:02) Shortness of breath cortisone Adverse Reaction (Severe, Verified 10/03/17 23:02) Knee swelled and severe pain with injection of cortisone IVP dye Allergy (Severe, Uncoded 10/03/17 23:02) Head and neck burning adhesive bandages Allergy (Intermediate, Uncoded 10/03/17 23:02) Burning rash narcotics Adverse Reaction (Severe, Uncoded 10/03/17 23:02) confusion Home Medications: Ambulatory Orders Medication Instructions Recorded Aspirin E.C. [Ecotrin] 81 mg PO DAILY@0800 07/17/17 Levothyroxine [Synthroid] 50 mcg PO DAILY 07/17/17 Citalopram Hydrobromide 40 mg PO DAILY 05/26/18 [Citalopram HBr] Furosemide [Lasix] 20 mg PO DAILY PRN 05/26/18 Metformin(XR) [Glucophage Xr] 1,000 mg PO BID 05/26/18 Metoprolol Succinate 50 mg PO DAILY 05/26/18 Simvastatin [Zocor] 40 mg PO DAILY 05/26/18 Warfarin Sodium 6 mg PO DAILY 05/26/18 Surgical History: Surgical History (Last Reviewed 05/26/18 @ 00:25 by Edvin Cruz MD) History of right knee joint replacement (Chronic) Z96.651 Surgical History: - - History of right knee replacement, right retrograde femoral nail. Lives: Spouse/ Significant Other Smoking Status: Never smoker Alcohol: None - *Family History Maternal Family History: Family History (Last Reviewed 05/26/18 @ 00:37 by Edvin Cruz MD) Mother CAD (coronary artery disease) Myocardial infarction Paternal Family History: Family History (Last Reviewed 05/26/18 @ 00:37 by Edvin Cruz MD) Mother CAD (coronary artery disease) Myocardial infarction Review of Systems Constitutional: Denies: Chills, Fever, Weight Change HEENT: Denies: Head Aches, Sinus Congestion, Sinus Drainage Cardiovascular: Denies: Chest Pain, Palpitations Respiratory: Denies: Cough, Shortness of breath at rest, Sputum production Gastrointestinal: Denies: Abdominal Pain, Nausea, Vomiting Genitourinary: Denies: Dysuria Musculoskeletal: Reports: Joint Tenderness, - - See HPI Skin: Denies: Rash, Wounds Neurological: Denies: Numbness, Tingling, Focal weakness Psychiatric: Denies: Anxiety, Depression, Homicidal Ideations, Suicidal Ideations Hematologic/ Lymphatic: Denies: Easy Bruising, Easy Bleeding Patient Problems: Active and Suspected Problems (Last Reviewed 05/26/18 @ 00:25 by Edvin Cruz MD) Fracture of right femur (Acute) Atrial fibrillation with RVR (Acute) Objective: Lumbar radiographs AP and lateral reviewed showing significant disc space narrowing at L3-4 with scoliosis in the coronal plane. PA and lateral of the right ankle shows no acute fractures good bony alignment. CT scan and x-rays of the right hip reveal a nondisplaced valgus impacted femoral neck fracture. Patient has previous retrograde nail extending up to the level of the lesser trochanter. - Physical Exam General: Alert, Oriented x3, Cooperative Extremities: - - Right lower extremity: Skin clean, dry, and intact. Limb is shortened and externally rotated Motor is intact dorsiflexion, EHL and plantar flexion. Sensation is intact to light touch saphenous, apolinar,l superficial peroneal, deep peroneal and tibial distributions. Calves are soft and supple. Vital Signs Temp Pulse Resp BP Pulse Ox 98.0 F 107 H 20 H 159/92 H 94 05/26/18 12:00 05/26/18 15:02 05/26/18 12:00 05/26/18 12:00 05/26/18 12:00 Oxygen Flow Rate (L/min) 3 Oxygen Delivery Method Nasal Cannula Weight: 198 lb 13.711 oz Body Mass Index (BMI) 33.0 Intake and Output for Last 24 Hours 05/24/18 05/25/18 05/26/18 23:59 23:59 23:59 Intake Total 258.7 / 258.7 Output Total 625 / 625 Balance -366.3 / -366.3 Laboratory Tests Past 24 Hrs 05/25/18 05/25/18 05/26/18 16:25 16:25 05:25 WBC RBC Hgb Hct MCV MCH MCHC RDW RDW Differential Plt Count MPV PT INR Sodium 137 Potassium 3.8 Chloride 103 Carbon Dioxide 24.0 Anion Gap 10 BUN 12 Creatinine 0.67 Estim Creat Clear Calc 42.39 Est GFR (MDRD) Af Amer 110 Est GFR (MDRD) Non-Af 91 BUN/Creatinine Ratio 18.0 Glucose 188 H Hemoglobin A1c Calcium 8.6 Vitamin B12 413 Vitamin D 25-Hydroxy 15.0 L TSH Blood Type O POSITIVE 05/26/18 05/26/18 05/26/18 05:25 05:25 05:25 WBC 9.5 RBC 4.37 Hgb 13.2 Hct 40.6 MCV 92.9 MCH 30.2 MCHC 32.5 RDW 12.7 RDW Differential 42.4 Plt Count 207 MPV 10.0 PT 19.0 H INR 1.6 Sodium Potassium Chloride Carbon Dioxide Anion Gap BUN Creatinine Estim Creat Clear Calc Est GFR (MDRD) Af Amer Est GFR (MDRD) Non-Af BUN/Creatinine Ratio Glucose Hemoglobin A1c Calcium Vitamin B12 Vitamin D 25-Hydroxy TSH 1.40 Blood Type 05/26/18 05/26/18 05:25 11:00 WBC RBC Hgb Hct MCV MCH MCHC RDW RDW Differential Plt Count MPV PT 17.4 H INR 1.4 Sodium Potassium Chloride Carbon Dioxide Anion Gap BUN Creatinine Estim Creat Clear Calc Est GFR (MDRD) Af Amer Est GFR (MDRD) Non-Af BUN/Creatinine Ratio Glucose Hemoglobin A1c 6.0 Calcium Vitamin B12 Vitamin D 25-Hydroxy TSH Blood Type POC Glucose 05/26/18 05/26/18 05/26/18 16:10 12:22 05:43 POC Glucose 124 H 159 H 191 H 05/25/18 22:48 POC Glucose 205 H Assessment/Plan All Active Problems (Last Reviewed 05/26/18 @ 00:25 by Edvin Cruz MD) Fracture of right femur (Acute) Atrial fibrillation with RVR (Acute) Right hip valgus impacted femoral neck fracture. Patient has extensive surgical history in the right lower extremity. Based on the fracture pattern and pain as well as patient's age and function we have elected to proceed with closed reduction percutaneous pinning we also discussed partial versus total hip replacement. Risks and benefits of the procedure were discussed the patient including but not limited to blood loss, DVTs, PEs, neurovascular damage, infection, general risk of anesthesia including loss of life. At this time patient wishes to proceed with closed reduction pertains pinning of the right hip. Patient does have some low back pain which is being treated by the primary service. Remainder of x-rays are negative for any fractures. Patient has been n.p.o. Clindamycin is ordered potline monitor to the operating room. We plan to proceed to surgery this evening. HESHAM [facility] Office:
--- NOTE | 2018-05-26 18:05 | RAD_ITS ---
STUDY: X-RAY - RIGHT HIP REASON FOR EXAM: Female, 77 years old. Intraoperative assessment TECHNIQUE: Two views of the hip were obtained. COMPARISON: May 25, 2018 FINDINGS: There are three screws through the right femoral neck terminating in the femoral head. The dose report could not be viewed. RAD/Hip Min 2 Views (Portable) IMPRESSION: Limited views of the right hip were obtained intraoperatively during fracture fixation. Electronically Signed: Summer Gifford MD at 22:34 EDT Tel Direct: [phone], Service support ,
--- NOTE | 2018-05-26 18:42 | PCM.OPRPT ---
Report of Operation Date of Procedure: 05/26/18 Pre-Operative Diagnosis: Nondisplaced subcapital femoral neck fracture Post-Operative Diagnosis: Nondisplaced subcapital femoral neck fracture Surgery/Procedure Performed:: Closed reduction percutaneous pinning right hip Description of Surgical Findings:: Stable reduction director nurses' registry: None Type of Anesthesia:: General Anesthesiologist: Sherrie Soler Special Medications: Cleocin Estimated Blood Loss (mL): 20 Fluids Replaced: 300 ml crystalloid Description of Procedure: Components: 3 7.0 Synthes screws Procedure: On the date of procedure patient's right lower extremity is was marked in the preoperative area. The patient was then taken back to the operating room where they were placed on the fracture table in the supine position. All bony prominences were identified a well-padded. Anesthesia assumed control of the C-spine and airway and remained controlled throughout the remainder of the procedure. A perineal post was placed and the pts legs were positioned for appropriate fluoroscopic views. The left lower extremity was prepped in a sterile fashion using chlorhexidine. The surgeon scrubbed at this time. Upon reentering the room the right extremity was draped in a standard orthopedic fashion. A timeout was then called and everyone agreed upon the side, the site, the procedure to be performed, patient's identity and antibiotics given. Fluoroscopy was used to verify the starting position of the initial pin which was above the level of the lesser trochanter. The initial pin was inserted percutaneously placed and the pin line driver was used to drive the inferior pin using fluoroscopic guidance into the appropriate position. The appropriate position was verified on the AP we then confirmed it on the lateral. Once we're happy with the position of our initial pin an incision was made in line with the pin and the parallel pin guide were used to place the 2 superior pins along the anterior and posterior cortex of the femoral neck. Once all 3 pins were placed just beneath the subchondral bone of the femoral head the depth gauge was used to measure the length. The inferior screw was 80 mm, the anterior-superior screws was 85 mm and the posterior-superior screws was 80 mm . The drill was then used to perforate the lateral cortex. All 3 screws were then placed under fluoroscopic guidance and final tightening was done by hand. Final x-rays were then taken to verify the position of the screws and the final reduction. Copious irrigation was then used to irrigate out the wound. The wound was closed using 2-0 Vicryl and 4-0 Monocryl with Steri-Strips. A sterile dressing was placed with Xeroform. Patient was then awakened by anesthesia and transferred to the PACU for recovery. Post op plan PT: Touchdown weightbearing times 2 weeks followed by partial weightbearing 50% for 4 weeks DVT ppx: Resume Coumadin Follow up: 2 weeks for wound check Grafts/Implants Used: Synthes 7.0 cannulated screws - Complications none - Admit VTE Documentation VTE Present on Admission: No VTE Mechan Device Prophylaxis: SCD's, Thigh High DEVANTE Hose VTE Pharm Prophylaxis ordered?: Yes
--- NOTE | 2018-05-26 18:48 | OP.PCM_ITS ---
Report of Operation Date of Procedure: 05/26/18 Pre-Operative Diagnosis: Nondisplaced subcapital femoral neck fracture Post-Operative Diagnosis: Nondisplaced subcapital femoral neck fracture Surgery/Procedure Performed:: Closed reduction percutaneous pinning right hip Description of Surgical Findings:: Stable reduction surgery scheduling coordinator: None Type of Anesthesia:: General Anesthesiologist: Sherrie Soler Special Medications: Cleocin Estimated Blood Loss (mL): 20 Fluids Replaced: 300 ml crystalloid Description of Procedure: Components: 3 7.0 Synthes screws Procedure: On the date of procedure patient's right lower extremity is was marked in the preoperative area. The patient was then taken back to the operating room where they were placed on the fracture table in the supine position. All bony prominences were identified a well-padded. Anesthesia assumed control of the C- spine and airway and remained controlled throughout the remainder of the procedure. A perineal post was placed and the pts legs were positioned for appropriate fluoroscopic views. The left lower extremity was prepped in a sterile fashion using chlorhexidine. The surgeon scrubbed at this time. Upon reentering the room the right extremity was draped in a standard orthopedic fashion. A timeout was then called and everyone agreed upon the side, the site, the procedure to be performed, patient's identity and antibiotics given. Fluoroscopy was used to verify the starting position of the initial pin which was above the level of the lesser trochanter. The initial pin was inserted percutaneously placed and the pin industrial tractor driver was used to drive the inferior pin using fluoroscopic guidance into the appropriate position. The appropriate position was verified on the AP we then confirmed it on the lateral. Once we're happy with the position of our initial pin an incision was made in line with the pin and the parallel pin guide were used to place the 2 superior pins along the anterior and posterior cortex of the femoral neck. Once all 3 pins were placed just beneath the subchondral bone of the femoral head the depth gauge was used to measure the length. The inferior screw was 80 mm, the anterior-superior screws was 85 mm and the posterior-superior screws was 80 mm . The drill was then used to perforate the lateral cortex. All 3 screws were then placed under fluoroscopic guidance and final tightening was done by hand. Final x-rays were then taken to verify the position of the screws and the final reduction. Copious irrigation was then used to irrigate out the wound. The wound was closed using 2-0 Vicryl and 4-0 Monocryl with Steri-Strips. A sterile dressing was placed with Xeroform. Patient was then awakened by anesthesia and transferred to the PACU for recovery. Post op plan PT: Touchdown weightbearing times 2 weeks followed by partial weightbearing 50% for 4 weeks DVT ppx: Resume Coumadin Follow up: 2 weeks for wound check Grafts/Implants Used: Synthes 7.0 cannulated screws - Complications none - Admit VTE Documentation VTE Present on Admission: No VTE Mechan Device Prophylaxis: SCD's, Thigh High DEVANTE Hose VTE Pharm Prophylaxis ordered?: Yes
[2018-05-26 19:36] LABS: Bedside Glucose 151 mg/dL (70-110)
[2018-05-26] MEDS: Lactated Ringers 1,000 ML 90 ML IV (23:35)
[2018-05-26] MEDS: Metoprolol(XL)Succ 50 MG Tablet PO (23:36)
[2018-05-26] MEDS: Atorvastatin Calcium 20 MG Tablet PO (23:36)
[2018-05-27] VITALS (11 sets, daily range): BP systolic 105–141; BP diastolic 61–85; PULSE 94–110; RESP 16–18; TEMP 36.4–37.3; O2SAT 93–97; BMI 33.1
[2018-05-27] LABS: Bedside Glucose 149 mg/dL (70-110)
[2018-05-27] MEDS: Levothyroxine 50 MCG Tablet PO (05:36)
[2018-05-27] MEDS: Acetaminophen 500 MG Tablet PO ×3 (05:36→17:18)
--- NOTE | 2018-05-27 05:52 | NURSING ---
Patient dangled at bedside this am, x2 max assist, much encouragement and staff assist needed. Patient did not tolerate well. in at bedside during this time, supportive.
[2018-05-27] MEDS: Insulin Lispro 100 UNIT/ML INSULN.PEN SC (06:48)
[2018-05-27 06:55] LABS: Bedside Glucose 198 mg/dL (70-110)
[2018-05-27] MEDS: Glucerna Shake 120 ML LIQUID PO ×3 (08:15→17:30)
[2018-05-27] MEDS: oxyCODONE 5 MG Tablet PO ×2 (08:16→21:19)
[2018-05-27 08:18] LABS: Absolute Lymphocyte Count 0.88 X10^3/ul (0.83-4.51); Absolute Neutrophil Count 6.7 X10^3/uL (2.0-7.7); Basophil# 0.03 X10^3/uL; Basophil% 0.4 % (0-1); Eosinophil# 0.43 X10^3/uL; Hematocrit 37.4 % (37-47); Hemoglobin 11.7 g/dl (12.0-15.0); Lymphocyte # 0.88 X10^3/ul (4.0); Lymphocyte % 10.3 % (19-41); Mean Corp Hgb Conc 31.3 g/gl (32-36); Mean Corpuscular Hgb 29.7 pg (27.0-32.0); Mean Corpuscular Volume 94.9 fL (81-99); Mean Platelet Vol. 9.9 fl (6.2-12.0); Monocyte# 0.51 X10^3/uL; Neutrophil # 6.68 X10^3/uL (2.7-7.7); Neutrophil % 78.2 % (47-70); Platelet Count 161 K/mm3 (150-450); RBC Distribution Width CV 12.9 % (11.6-14.6); RBC Distribution Width SD 45.2 fl (35.1-43.9); Red Blood Count 3.94 M/mm3 (4.2-5.4); White Blood Count 8.5 K/mm3 (4.4-11.0)
[2018-05-27 08:19] LABS: POSITIVE COUNT NO; POSITIVE DIFFERENTIAL NO; POSITIVE MORPHOLOGY NO
[2018-05-27 08:20] LABS: International Normalized Ratio 1.2; Prothrombin Time (Protime)PT. 15.3 SECONDS (11.7-14.9)
[2018-05-27 08:47] LABS: Anion Gap 9 (5-15); BUN 11 mg/dL (7-18); BUN/Creat Ratio 19.1 RATIO (10-20); Calcium,Total 8.5 mg/dL (8.5-10.1); Chloride 100 mmol/L (98-107); Creatinine, Serum 0.58 mg/dL (0.55-1.02); EST Glomerular Filtration Rate 108 mL/min (>60); Est Glom Filt Rate - Afr Amer 131 mL/min (>60); Estimated Creatinine Clearance 42.39 ml/min; Glucose 175 mg/dL (74-106); Potassium 3.8 mmol/L (3.5-5.1); Sodium Level 135 mmol/L (136-145)
--- NOTE | 2018-05-27 09:09 | PCM.PN.HOSP ---
Patient Problems: Active and Suspected Problems (Last Reviewed 05/26/18 @ 00:25 by Edvin Cruz MD) Fracture of right femur (Acute) Atrial fibrillation with RVR (Acute) Subjective: has hip pain postoperatively. Vitals/I&O's: Vital Signs Temp Pulse Resp BP Pulse Ox 37.3 C H 110 H 18 124/70 H 97 05/27/18 01:35 05/27/18 04:05 05/27/18 01:35 05/27/18 01:35 05/27/18 01:35 Oxygen Flow Rate (L/min) 3 Oxygen Delivery Method Nasal Cannula Weight: 90.2 kg Body Mass Index (BMI) 33.0 Finger Stick Blood Glucose 151 Intake and Output for Last 24 Hours 05/25/18 05/26/18 05/27/18 23:59 23:59 23:59 Intake Total 1507.7 / 1507.7 880 / 880 Output Total 1080 / 1080 150 / 150 Balance 427.7 / 427.7 730 / 730 General: Alert, Cooperative, No apparent distress HEENT: Atraumatic, Normocephalic Oral: Moist Mucosa, No Gingival or Mucosal Lesions/ Ulcerations Neck: No Nodes, Thyroid Normal Size and Texture Lungs: Clear to auscultation, Normal air movement, No rhonchi, No wheeze Cardiovascular: Regular rate, Regular Rhythm, Normal S1, Normal S2, No murmurs Abdomen: Bowel Sounds Present, Soft, Non Tender, Non-Distended, No Hepato-splenomegaly Extremities: No edema, No Calf Tenderness Psych/Mental Status: Normal Affect, Appropriate Laboratory Results 05/26/18 11:00: PT 17.4 H, INR 1.4 05/26/18 12:22: POC Glucose 159 H 05/26/18 16:10: POC Glucose 124 H 05/26/18 19:29: POC Glucose 151 H 05/26/18 23:30: POC Glucose 149 H 05/27/18 06:46: POC Glucose 198 H 05/27/18 07:40: WBC 8.5, RBC 3.94 L, Hgb 11.7 L, Hct 37.4, MCV 94.9, MCH 29.7, MCHC 31.3 L, RDW 12.9, RDW Differential 45.2 H, Plt Count 161, MPV 9.9, Immature Gran % (Auto) 0.100, Neut % (Auto) 78.2 H, Lymph % (Auto) 10.3 L, [place] % (Auto) 6.0, Eos % (Auto) 5.0, Baso % (Auto) 0.4, Absolute Neuts (auto) 6.7, Absolute Lymphs (auto) 0.88, Total Counted Not Reportable 05/27/18 07:40: PT 15.3 H, INR 1.2 05/27/18 07:40: Sodium 135 L, Potassium 3.8, Chloride 100, Carbon Dioxide 26.0, Anion Gap 9, BUN 11, Creatinine 0.58, Estim Creat Clear Calc 42.39, Est GFR (MDRD) Af Amer 131, Est GFR (MDRD) Non-Af 108, BUN/Creatinine Ratio 19.1, Glucose 175 H, Calcium 8.5 Current Medications Acetaminophen (Tylenol) 500 mg PO Q6 [facility] Last Admin: 05/27/18 05:36 Dose: 500 mg Atorvastatin Calcium (Lipitor) 20 mg PO DAILY@2200 [facility] Last Admin: 05/26/18 23:36 Dose: 20 mg Citalopram Hydrobromide (Celexa) 40 mg PO DAILY [facility] Last Admin: 05/27/18 00:29 Dose: Not Given Dextrose (D50w Syringe) 0 gm IV X1 PRN; Protocol PRN Reason: Hypoglycemia Glucagon () 1 mg IM .X1 PRN PRN Reason: Hypoglycemia Clindamycin Phosphate 600 mg/ (Dextrose) 54 mls @ 100 mls/hr IV Q6 [facility] Stop: 05/27/18 12:33 Last Admin: 05/27/18 05:36 Dose: 100 mls/hr Lactated Ringer's () 1,000 mls @ 90 mls/hr IV .Q11H7M [facility] Last Admin: 05/26/18 23:35 Dose: 90 mls/hr Insulin Human Lispro (Humalog Kwikpen (Bkc)) 0 unit SC ACHS [facility]; Protocol Last Admin: 05/27/18 06:48 Dose: 2 u Levothyroxine Sodium (Synthroid) 50 mcg PO DAILY@0600 [facility] Last Admin: 05/27/18 05:36 Dose: 50 mcg Magnesium Hydroxide (Milk Of Magnesia) 30 ml PO DAILY PRN PRN Reason: Constipation Metformin HCl (Glucophage Xr) 1,000 mg PO BIDCM [facility] Last Admin: 05/27/18 08:15 Dose: 1,000 mg Metoprolol Succinate (Toprol Xl (Beta Marsha)) 50 mg PO DAILY [facility] Last Admin: 05/26/18 23:36 Dose: 50 mg Morphine Sulfate () 0.5 mg IV Q6H PRN PRN PRN Reason: PAIN Last Admin: 05/26/18 06:43 Dose: 0.5 mg Nutritional Formula (Lactose Free) (Glucerna Shake) 120 ml PO TIDCM [facility] Last Admin: 05/27/18 08:15 Dose: 120 ml Ondansetron HCl (Zofran) 4 mg IV Q8H PRN PRN PRN Reason: Nausea Oxycodone HCl (Oxyir) 5 mg PO Q4H PRN PRN PRN Reason: SEVERE PAIN (6-10/10) Last Admin: 05/27/18 08:16 Dose: 5 mg Sodium Chloride () 5 - 30 ml IV UD PRN PRN Reason: SALINE FLUSH Last Admin: 05/26/18 06:42 Dose: 10 ml Warfarin Sodium (Coumadin (Pbkc)) 6 mg PO DAILY@1700 [facility] Medical Necessity - Tobacco Use Smoking Status: Never smoker Assessment/Plan All Active Problems (Last Reviewed 05/26/18 @ 00:25 by Edvin Cruz MD) Fracture of right femur (Acute) Atrial fibrillation with RVR (Acute) 1. right femoral neck fracture. s/p closed pinning on 05/[address] Griffin touchdown weight bearing for 2 weeks then partial 50% for 4 weeks. PT/OT pt prefers to go home w [facility], rather than SNF. Recommend she discuss with her family. Clarified pain medication: pt will need to notify staff when she is in pain to obtain medications 2. Afib with RVR currently rate controlled dc cardizem gtt continue flecanaide. may have been exacerbated by fall and pain 3. toxic encephalopathy resolved 2/2 ativan pt very sensitive to medications dozing off during encounter d/w family, that with narcotics there needs to be a balance b/w pain control and function. Informed them that I will not be increasing her pain medications at this time. 4. DVT proph: SCDs for now. Code Visit Inpatient E&M: 25154 Subs Hosp L2
--- NOTE | 2018-05-27 09:13 | PN_ITS ---
Patient Problems: Active and Suspected Problems (Last Reviewed 05/26/18 @ 00:25 by Edvin Cruz MD) Fracture of right femur (Acute) Atrial fibrillation with RVR (Acute) Subjective: has hip pain postoperatively. Vitals/I&O's: Vital Signs Temp Pulse Resp BP Pulse Ox 37.3 C H 110 H 18 124/70 H 97 05/27/18 01:35 05/27/18 04:05 05/27/18 01:35 05/27/18 01:35 05/27/18 01:35 Oxygen Flow Rate (L/min) 3 Oxygen Delivery Method Nasal Cannula Weight: 90.2 kg Body Mass Index (BMI) 33.0 Finger Stick Blood Glucose 151 Intake and Output for Last 24 Hours 05/25/18 05/26/18 05/27/18 23:59 23:59 23:59 Intake Total 1507.7 / 1507.7 880 / 880 Output Total 1080 / 1080 150 / 150 Balance 427.7 / 427.7 730 / 730 General: Alert, Cooperative, No apparent distress HEENT: Atraumatic, Normocephalic Oral: Moist Mucosa, No Gingival or Mucosal Lesions/ Ulcerations Neck: No Nodes, Thyroid Normal Size and Texture Lungs: Clear to auscultation, Normal air movement, No rhonchi, No wheeze Cardiovascular: Regular rate, Regular Rhythm, Normal S1, Normal S2, No murmurs Abdomen: Bowel Sounds Present, Soft, Non Tender, Non-Distended, No Hepato- splenomegaly Extremities: No edema, No Calf Tenderness Psych/Mental Status: Normal Affect, Appropriate Laboratory Results 05/26/18 11:00: PT 17.4 H, INR 1.4 05/26/18 12:22: POC Glucose 159 H 05/26/18 16:10: POC Glucose 124 H 05/26/18 19:29: POC Glucose 151 H 05/26/18 23:30: POC Glucose 149 H 05/27/18 06:46: POC Glucose 198 H 05/27/18 07:40: WBC 8.5, RBC 3.94 L, Hgb 11.7 L, Hct 37.4, MCV 94.9, MCH 29.7, MCHC 31.3 L, RDW 12.9, RDW Differential 45.2 H, Plt Count 161, MPV 9.9, Immature Gran % (Auto) 0.100, Neut % (Auto) 78.2 H, Lymph % (Auto) 10.3 L, [place] % (Auto) 6.0, Eos % (Auto) 5.0, Baso % (Auto) 0.4, Absolute Neuts (auto) 6.7, Absolute Lymphs (auto) 0.88, Total Counted Not Reportable 05/27/18 07:40: PT 15.3 H, INR 1.2 05/27/18 07:40: Sodium 135 L, Potassium 3.8, Chloride 100, Carbon Dioxide 26.0, Anion Gap 9, BUN 11, Creatinine 0.58, Estim Creat Clear Calc 42.39, Est GFR (MDRD) Af Amer 131, Est GFR (MDRD) Non-Af 108, BUN/Creatinine Ratio 19.1, Glucose 175 H, Calcium 8.5 Current Medications Acetaminophen (Tylenol) 500 mg PO Q6 [facility] Last Admin: 05/27/18 05:36 Dose: 500 mg Atorvastatin Calcium (Lipitor) 20 mg PO DAILY@2200 [facility] Last Admin: 05/26/18 23:36 Dose: 20 mg Citalopram Hydrobromide (Celexa) 40 mg PO DAILY [facility] Last Admin: 05/27/18 00:29 Dose: Not Given Dextrose (D50w Syringe) 0 gm IV X1 PRN; Protocol PRN Reason: Hypoglycemia Glucagon () 1 mg IM .X1 PRN PRN Reason: Hypoglycemia Clindamycin Phosphate 600 mg/ (Dextrose) 54 mls @ 100 mls/hr IV Q6 [facility] Stop: 05/27/18 12:33 Last Admin: 05/27/18 05:36 Dose: 100 mls/hr Lactated Ringer's () 1,000 mls @ 90 mls/hr IV .Q11H7M [facility] Last Admin: 05/26/18 23:35 Dose: 90 mls/hr Insulin Human Lispro (Humalog Kwikpen (Bkc)) 0 unit SC ACHS [facility]; Protocol Last Admin: 05/27/18 06:48 Dose: 2 u Levothyroxine Sodium (Synthroid) 50 mcg PO DAILY@0600 [facility] Last Admin: 05/27/18 05:36 Dose: 50 mcg Magnesium Hydroxide (Milk Of Magnesia) 30 ml PO DAILY PRN PRN Reason: Constipation Metformin HCl (Glucophage Xr) 1,000 mg PO BIDCM [facility] Last Admin: 05/27/18 08:15 Dose: 1,000 mg Metoprolol Succinate (Toprol Xl (Beta Marsha)) 50 mg PO DAILY [facility] Last Admin: 05/26/18 23:36 Dose: 50 mg Morphine Sulfate () 0.5 mg IV Q6H PRN PRN PRN Reason: PAIN Last Admin: 05/26/18 06:43 Dose: 0.5 mg Nutritional Formula (Lactose Free) (Glucerna Shake) 120 ml PO TIDCM [facility] Last Admin: 05/27/18 08:15 Dose: 120 ml Ondansetron HCl (Zofran) 4 mg IV Q8H PRN PRN PRN Reason: Nausea Oxycodone HCl (Oxyir) 5 mg PO Q4H PRN PRN PRN Reason: SEVERE PAIN (6-10/10) Last Admin: 05/27/18 08:16 Dose: 5 mg Sodium Chloride () 5 - 30 ml IV UD PRN PRN Reason: SALINE FLUSH Last Admin: 05/26/18 06:42 Dose: 10 ml Warfarin Sodium (Coumadin (Pbkc)) 6 mg PO DAILY@1700 [facility] Medical Necessity - Tobacco Use Smoking Status: Never smoker Assessment/Plan All Active Problems (Last Reviewed 05/26/18 @ 00:25 by Edvin Cruz MD) Fracture of right femur (Acute) Atrial fibrillation with RVR (Acute) 1. right femoral neck fracture. * s/p closed pinning on 05/[address] Griffin * touchdown weight bearing for 2 weeks then partial 50% for 4 weeks. * PT/OT * pt prefers to go home w [facility], rather than SNF. Recommend she discuss with her family. * Clarified pain medication: pt will need to notify staff when she is in pain to obtain medications 2. Afib with RVR * currently rate controlled * dc cardizem gtt * continue flecanaide. * may have been exacerbated by fall and pain 3. toxic encephalopathy * resolved * 2/2 ativan * pt very sensitive to medications * dozing off during encounter * d/w family, that with narcotics there needs to be a balance b/w pain control and function. Informed them that I will not be increasing her pain medications at this time. 4. DVT proph: SCDs for now. Code Visit Inpatient E&M: 53931 Subs Hosp L2
[2018-05-27] MEDS: Metoprolol(XL)Succ 50 MG Tablet PO (10:34)
[2018-05-27] MEDS: Citalopram 40 MG TABLET PO (10:34)
--- NOTE | 2018-05-27 10:39 | PN.ORTHO_ITS ---
Patient Problems: Active and Suspected Problems (Last Reviewed 05/26/18 @ 00:25 by Edvin Cruz MD) Fracture of right femur (Acute) Atrial fibrillation with RVR (Acute) Subjective: The patient was sitting in bed upon examination. Patient denies any chest pain, shortness of breath, dizziness, lightheadedness, nausea or vomiting, or calf pain. Patient does report pain in her right hip. Pain is controlled on medications. No adverse overnight events. Patient reports she wants to try to go home with home health care when medically stable. Objective: Vital signs stable and afebrile. Tachycardia 107 Patient is able to plantarflex and dorsiflex actively. Sensation is intact to light touch to saphenous, sural, superficial and deep peroneal, and tibial distribution. Dressing is clean dry and intact. Negative Homans bilaterally, negative signs and symptoms of DVT. - Physical Exam General: Alert, Cooperative, No apparent distress Vital Signs Temp Pulse Resp BP Pulse Ox 98.4 F 107 H 16 141/85 H 93 05/27/18 08:00 05/27/18 08:00 05/27/18 08:00 05/27/18 08:00 05/27/18 08:10 Oxygen Flow Rate (L/min) 3 Oxygen Delivery Method Nasal Cannula Weight: 90.2 kg Body Mass Index (BMI) 33.0 Finger Stick Blood Glucose 151 Intake and Output for Last 24 Hours 05/25/18 05/26/18 05/27/18 23:59 23:59 23:59 Intake Total 1507.7 / 1507.7 880 / 880 Output Total 1080 / 1080 150 / 150 Balance 427.7 / 427.7 730 / 730 Laboratory Tests Past 24 Hrs 05/26/18 05/27/18 05/27/18 11:00 07:40 07:40 WBC 8.5 RBC 3.94 L Hgb 11.7 L Hct 37.4 MCV 94.9 MCH 29.7 MCHC 31.3 L RDW 12.9 RDW Differential 45.2 H Plt Count 161 MPV 9.9 Immature Gran % (Auto) 0.100 Neut % (Auto) 78.2 H Lymph % (Auto) 10.3 L [place] % (Auto) 6.0 Eos % (Auto) 5.0 Baso % (Auto) 0.4 Absolute Neuts (auto) 6.7 Absolute Lymphs (auto) 0.88 Total Counted Not Reportable PT 17.4 H 15.3 H INR 1.4 1.2 Sodium Potassium Chloride Carbon Dioxide Anion Gap BUN Creatinine Estim Creat Clear Calc Est GFR (MDRD) Af Amer Est GFR (MDRD) Non-Af BUN/Creatinine Ratio Glucose Calcium 05/27/18 07:40 WBC RBC Hgb Hct MCV MCH MCHC RDW RDW Differential Plt Count MPV Immature Gran % (Auto) Neut % (Auto) Lymph % (Auto) [place] % (Auto) Eos % (Auto) Baso % (Auto) Absolute Neuts (auto) Absolute Lymphs (auto) Total Counted PT INR Sodium 135 L Potassium 3.8 Chloride 100 Carbon Dioxide 26.0 Anion Gap 9 BUN 11 Creatinine 0.58 Estim Creat Clear Calc 42.39 Est GFR (MDRD) Af Amer 131 Est GFR (MDRD) Non-Af 108 BUN/Creatinine Ratio 19.1 Glucose 175 H Calcium 8.5 POC Glucose 05/27/18 05/26/18 05/26/18 06:46 23:30 19:29 POC Glucose 198 H 149 H 151 H 05/26/18 05/26/18 16:10 12:22 POC Glucose 124 H 159 H Medical Necessity - Tobacco Use Smoking Status: Never smoker Assessment/Plan All Active Problems (Last Reviewed 05/26/18 @ 00:25 by Edvin Cruz MD) Fracture of right femur (Acute) Atrial fibrillation with RVR (Acute) 1. S/P closed reduction percutaneous pinning right hip POD #1 2. Continue Pain Medications: Tylenol and OxyIR 3. DVT Prophylaxis: Manage per medicine. Patient has taken warfarin prior to surgery due to atrial fibrillation. 4. PT/OT: Patient will be touchdown weightbearing for 2 weeks postoperatively followed by partial weightbearing 50% for an additional 4 weeks 5. H & H: 11.7/37.4, asymptomatic 6. Encouraged Incentive Spirometry 7. Continue postoperative medical management per medicine 8. Disposition: Patient prefers to go home with home health care rather than going to care home facility. This will be discussed with family. Case management involved.
[2018-05-27 13:06] LABS: Bedside Glucose 139 mg/dL (70-110)
[2018-05-27 19:06] LABS: Bedside Glucose 119 mg/dL (70-110)
[2018-05-27] MEDS: Atorvastatin Calcium 20 MG Tablet PO (21:19)
[2018-05-27 21:25] LABS: Bedside Glucose 136 mg/dL (70-110)
[2018-05-28] VITALS (14 sets, daily range): BP systolic 101–141; BP diastolic 61–83; PULSE 80–126; RESP 14–18; TEMP 36.6–37.2; O2SAT 95–97
[2018-05-28] MEDS: Acetaminophen 500 MG Tablet PO ×5 (00:35→23:40)
[2018-05-28] MEDS: Metoprolol Tartrate 5 MG/5 ML Vial IV ×2 (00:36→01:58)
[2018-05-28] MEDS: 0.9% NaCl Peripheral Flush Adult/Peds IV (01:02)
[2018-05-28] MEDS: Levothyroxine 50 MCG Tablet PO (06:44)
[2018-05-28] MEDS: Enoxaparin 40 MG/0.4 ML Syringe SC (06:44)
[2018-05-28 06:55] LABS: Bedside Glucose 122 mg/dL (70-110)
[2018-05-28 07:58] LABS: Absolute Lymphocyte Count 1.57 X10^3/ul (0.83-4.51); Absolute Neutrophil Count 3.8 X10^3/uL (2.0-7.7); Basophil# 0.02 X10^3/uL; Basophil% 0.3 % (0-1); Eosinophil# 0.44 X10^3/uL; Eosinophils% 7.1 % (0-5); Lymphocyte # 1.57 X10^3/ul (4.0); Lymphocyte % 25.2 % (19-41); Mean Corp Hgb Conc 31.4 g/gl (32-36); Mean Corpuscular Hgb 29.7 pg (27.0-32.0); Mean Corpuscular Volume 94.6 fL (81-99); Mean Platelet Vol. 10.2 fl (6.2-12.0); Monocyte# 0.36 X10^3/uL; Monocyte% 5.8 % (0-10); Neutrophil # 3.84 X10^3/uL (2.7-7.7); Neutrophil % 61.4 % (47-70); Platelet Count 164 K/mm3 (150-450); RBC Distribution Width CV 12.8 % (11.6-14.6); RBC Distribution Width SD 44.6 fl (35.1-43.9); White Blood Count 6.2 K/mm3 (4.4-11.0)
[2018-05-28 07:59] LABS: POSITIVE COUNT NO; POSITIVE DIFFERENTIAL NO; POSITIVE MORPHOLOGY NO
--- NOTE | 2018-05-28 08:02 | PN.ORTHO_ITS ---
Patient Problems: Active and Suspected Problems (Last Reviewed 05/26/18 @ 00:25 by Edvin Cruz MD) Fracture of right femur (Acute) Atrial fibrillation with RVR (Acute) Subjective: The patient was sitting in bed upon examination. Patient denies any chest pain, shortness of breath, dizziness, lightheadedness, nausea or vomiting, or calf pain. Patient does report pain in the right hip but pain is controlled on medications. No adverse overnight events. Family member present during evaluation. We had discussion with regards to possible detention facility postoperatively due to potential for fall and limitations with weightbearing status. Patient has been to the bedside chair once yesterday. Objective: Vital signs stable and afebrile. Tachycardia currently 123 without chest pain or shortness of breath. Patient is able to plantarflex and dorsiflex actively. Sensation is intact to light touch to saphenous, sural, superficial and deep peroneal, and tibial distribution. Dressing is clean dry and intact. Negative Homans bilaterally, negative signs and symptoms of DVT. - Physical Exam General: Alert, Oriented x3, Cooperative, No apparent distress Vital Signs Temp Pulse Resp BP Pulse Ox 97.8 F 123 H 16 101/61 95 05/28/18 01:55 EDT 05/28/18 07:51 05/28/18 01:55 EDT 05/28/18 01:55 EDT 05/28/18 01:55 EDT Oxygen Flow Rate (L/min) 2 Oxygen Delivery Method Nasal Cannula Weight: 90.2 kg Body Mass Index (BMI) 33.0 Finger Stick Blood Glucose 151 Intake and Output for Last 24 Hours 05/26/18 05/27/18 05/28/18 23:59 23:59 22:59 Intake Total 1507.7 / 1507.7 2203 / 2203 400 / 400 Output Total 1080 / 1080 720 / 720 600 / 600 Balance 427.7 / 427.7 1483 / 1483 -200 / -200 Laboratory Tests Past 24 Hrs 05/28/18 05/28/18 07:40 07:40 WBC Pending RBC Pending Hgb Pending Hct Pending MCV Pending MCH Pending MCHC Pending RDW Pending RDW Differential Pending Plt Count Pending Neut % (Auto) Pending Absolute Neuts (auto) Pending Total Counted Pending PT Pending INR Pending POC Glucose 05/28/18 05/27/18 05/27/18 06:42 21:02 17:13 POC Glucose 122 H 136 H 119 H 05/27/18 12:06 POC Glucose 139 H Medical Necessity - Tobacco Use Smoking Status: Never smoker Assessment/Plan All Active Problems (Last Reviewed 05/26/18 @ 00:25 by Edvin Cruz MD) Fracture of right femur (Acute) Atrial fibrillation with RVR (Acute) 1. S/P closed reduction percutaneous pinning right hip POD #2 2. Continue Pain Medications: Tylenol and OxyIR 3. DVT Prophylaxis: Manage per medicine. Patient has been placed back on her warfarin postoperatively. 4. PT/OT: Patient will be touchdown weightbearing for 2 weeks postoperatively followed by partial weightbearing 50% for an additional 4 weeks 5. H & H: 11.0/35.0, asymptomatic 6. Encouraged Incentive Spirometry 7. Continue postoperative medical management per medicine 8. Disposition: Had a lengthy discussion with the patient and family member today with regards to postoperative discharge. Patient wishes to go home but I do not feel this would be the most appropriate decision with patient's limitations in weightbearing restrictions. Case management involved with appropriate placement. Patient will continue with touchdown weightbearing right lower extremity, help assist to bedside chair. Patient will need to schedule two-week postoperative follow-up with Dr. Farrukh Griffin for x-rays and incision check.
[2018-05-28 08:45] LABS: International Normalized Ratio 1.3; Prothrombin Time (Protime)PT. 16.4 SECONDS (11.7-14.9)
[2018-05-28] MEDS: Glucerna Shake 120 ML LIQUID PO ×3 (09:16→16:40)
[2018-05-28] MEDS: Citalopram 40 MG TABLET PO (09:17)
--- NOTE | 2018-05-28 09:56 | PCM.PN.HOSP ---
Patient Problems: Active and Suspected Problems (Last Reviewed 05/26/18 @ 00:25 by Edvin Cruz MD) Fracture of right femur (Acute) Atrial fibrillation with RVR (Acute) Subjective: Had HR sporadically that went up to the 130s. Pain fairly well controlled. Patient still adamant about going home. Vitals/I&O's: Vital Signs Temp Pulse Resp BP Pulse Ox 36.9 C 95 16 118/74 97 05/28/18 08:01 05/28/18 08:01 05/28/18 08:01 05/28/18 08:01 05/28/18 08:30 Oxygen Flow Rate (L/min) 2 Oxygen Delivery Method Nasal Cannula Weight: 90.2 kg Body Mass Index (BMI) 33.0 Finger Stick Blood Glucose 151 Intake and Output for Last 24 Hours 05/26/18 05/27/18 05/28/18 23:59 23:59 22:59 Intake Total 1507.7 / 1507.7 2203 / 2203 400 / 400 Output Total 1080 / 1080 720 / 720 600 / 600 Balance 427.7 / 427.7 1483 / 1483 -200 / -200 General: Alert, Cooperative, No apparent distress HEENT: Atraumatic, Normocephalic Oral: Moist Mucosa, No Gingival or Mucosal Lesions/ Ulcerations Neck: No Nodes, Thyroid Normal Size and Texture Lungs: Clear to auscultation, Normal air movement, No rhonchi, No wheeze Cardiovascular: Regular rate, Regular Rhythm, Normal S1, Normal S2, No murmurs Abdomen: Bowel Sounds Present, Soft, Non Tender, Non-Distended, No Hepato-splenomegaly Extremities: No edema, No Calf Tenderness Skin: No rashes, No breakdown Psych/Mental Status: Appropriate, Flat Affect Laboratory Results 05/27/18 12:06: POC Glucose 139 H 05/27/18 17:13: POC Glucose 119 H 05/27/18 21:02: POC Glucose 136 H 05/28/18 06:42: POC Glucose 122 H 05/28/18 07:40: WBC 6.2, RBC 3.70 L, Hgb 11.0 L, Hct 35.0 L, MCV 94.6, MCH 29.7, MCHC 31.4 L, RDW 12.8, RDW Differential 44.6 H, Plt Count 164, MPV 10.2, Immature Gran % (Auto) 0.200, Neut % (Auto) 61.4, Lymph % (Auto) 25.2, [place] % (Auto) 5.8, Eos % (Auto) 7.1 H, Baso % (Auto) 0.3, Absolute Neuts (auto) 3.8, Absolute Lymphs (auto) 1.57, Total Counted Not Reportable 05/28/18 07:40: PT 16.4 H, INR 1.3 Current Medications Acetaminophen (Tylenol) 500 mg PO Q6 [facility] Last Admin: 05/28/18 06:44 Dose: 500 mg Atorvastatin Calcium (Lipitor) 20 mg PO DAILY@2200 [facility] Last Admin: 05/27/18 21:19 Dose: 20 mg Citalopram Hydrobromide (Celexa) 40 mg PO DAILY [facility] Last Admin: 05/28/18 09:17 Dose: 40 mg Dextrose (D50w Syringe) 0 gm IV X1 PRN; Protocol PRN Reason: Hypoglycemia Enoxaparin Sodium (Lovenox) 40 mg SC DAILY@0600 [facility] Last Admin: 05/28/18 06:44 Dose: 40 mg Glucagon () 1 mg IM .X1 PRN PRN Reason: Hypoglycemia Insulin Human Lispro (Humalog Kwikpen (Bkc)) 0 unit SC [facility]; Protocol Last Admin: 05/28/18 06:45 Dose: Not Given Levothyroxine Sodium (Synthroid) 50 mcg PO DAILY@0600 [facility] Last Admin: 05/28/18 06:44 Dose: 50 mcg Magnesium Hydroxide (Milk Of Magnesia) 30 ml PO DAILY PRN PRN Reason: Constipation Metformin HCl (Glucophage Xr) 1,000 mg PO BIDCM [facility] Last Admin: 05/28/18 09:16 Dose: 1,000 mg Metoprolol Succinate (Toprol Xl (Beta Marsha)) 50 mg PO DAILY [facility] Last Admin: 05/27/18 10:34 Dose: 50 mg Morphine Sulfate () 0.5 mg IV Q6H PRN PRN PRN Reason: PAIN Last Admin: 05/26/18 06:43 Dose: 0.5 mg Nutritional Formula (Lactose Free) (Glucerna Shake) 120 ml PO TIDCM [facility] Last Admin: 05/28/18 09:16 Dose: 120 ml Ondansetron HCl (Zofran) 4 mg IV Q8H PRN PRN PRN Reason: Nausea Oxycodone HCl (Oxyir) 5 mg PO Q4H PRN PRN PRN Reason: SEVERE PAIN (6-10/10) Last Admin: 05/27/18 21:19 Dose: 5 mg Sodium Chloride () 5 - 30 ml IV UD PRN PRN Reason: SALINE FLUSH Last Admin: 05/28/18 01:02 EST Dose: 10 ml Warfarin Sodium (Coumadin (Pbkc)) 6 mg PO DAILY@1700 [facility] Last Admin: 05/27/18 17:16 Dose: 6 mg Medical Necessity - Tobacco Use Smoking Status: Never smoker Assessment/Plan All Active Problems (Last Reviewed 05/26/18 @ 00:25 by Edvin Cruz MD) Fracture of right femur (Acute) Atrial fibrillation with RVR (Acute) 1. right femoral neck fracture. s/p closed pinning on 05/[address] Griffin touchdown weight bearing for 2 weeks then partial 50% for 4 weeks. PT/OT pt prefers to go home w [facility], rather than SNF. Recommend she discuss with her family. Clarified pain medication: pt will need to notify staff when she is in pain to obtain medications 2. Afib with RVR currently rate controlled was not on flecanide but Toprol XL 50mg DW Dr. Mata (patient's primary naphthalene operator) who feels that her medication should remain the same despite the fluctuations. She may follow up with Dr. Mata as outpt. may have been exacerbated by fall and pain 3. toxic encephalopathy resolved 2/2 ativan pt very sensitive to medications dozing off during encounter d/w family, that with narcotics there needs to be a balance b/w pain control and function. Informed them that I will not be increasing her pain medications at this time. 4. DVT proph: LMWH until INR therapeutic 5. Disposition: Patient appropriate for SNF However, patient insistent on going home with [facility]. Patient was max assist with Sit to stand and to stand pivot Expressed to patient that we will follow her wishes, though told her that going home now, even with home care, would be a bad idea. Daughter present in room during this encounter who was also concerned about patient going directly home. Greater than 35 minutes of which greater than 50% of the time was discussing disposition options and recommendations with the patient and her daughter. Code Visit Inpatient E&M: 63990 Subs Hosp L3
--- NOTE | 2018-05-28 10:04 | PN_ITS ---
Patient Problems: Active and Suspected Problems (Last Reviewed 05/26/18 @ 00:25 by Edvin Cruz MD) Fracture of right femur (Acute) Atrial fibrillation with RVR (Acute) Subjective: Had HR sporadically that went up to the 130s. Pain fairly well controlled. Patient still adamant about going home. Vitals/I&O's: Vital Signs Temp Pulse Resp BP Pulse Ox 36.9 C 95 16 118/74 97 05/28/18 08:01 05/28/18 08:01 05/28/18 08:01 05/28/18 08:01 05/28/18 08:30 Oxygen Flow Rate (L/min) 2 Oxygen Delivery Method Nasal Cannula Weight: 90.2 kg Body Mass Index (BMI) 33.0 Finger Stick Blood Glucose 151 Intake and Output for Last 24 Hours 05/26/18 05/27/18 05/28/18 23:59 23:59 22:59 Intake Total 1507.7 / 1507.7 2203 / 2203 400 / 400 Output Total 1080 / 1080 720 / 720 600 / 600 Balance 427.7 / 427.7 1483 / 1483 -200 / -200 General: Alert, Cooperative, No apparent distress HEENT: Atraumatic, Normocephalic Oral: Moist Mucosa, No Gingival or Mucosal Lesions/ Ulcerations Neck: No Nodes, Thyroid Normal Size and Texture Lungs: Clear to auscultation, Normal air movement, No rhonchi, No wheeze Cardiovascular: Regular rate, Regular Rhythm, Normal S1, Normal S2, No murmurs Abdomen: Bowel Sounds Present, Soft, Non Tender, Non-Distended, No Hepato- splenomegaly Extremities: No edema, No Calf Tenderness Skin: No rashes, No breakdown Psych/Mental Status: Appropriate, Flat Affect Laboratory Results 05/27/18 12:06: POC Glucose 139 H 05/27/18 17:13: POC Glucose 119 H 05/27/18 21:02: POC Glucose 136 H 05/28/18 06:42: POC Glucose 122 H 05/28/18 07:40: WBC 6.2, RBC 3.70 L, Hgb 11.0 L, Hct 35.0 L, MCV 94.6, MCH 29.7, MCHC 31.4 L, RDW 12.8, RDW Differential 44.6 H, Plt Count 164, MPV 10.2, Immature Gran % (Auto) 0.200, Neut % (Auto) 61.4, Lymph % (Auto) 25.2, [place] % (Auto) 5.8, Eos % (Auto) 7.1 H, Baso % (Auto) 0.3, Absolute Neuts (auto) 3.8, Absolute Lymphs (auto) 1.57, Total Counted Not Reportable 05/28/18 07:40: PT 16.4 H, INR 1.3 Current Medications Acetaminophen (Tylenol) 500 mg PO Q6 [facility] Last Admin: 05/28/18 06:44 Dose: 500 mg Atorvastatin Calcium (Lipitor) 20 mg PO DAILY@2200 [facility] Last Admin: 05/27/18 21:19 Dose: 20 mg Citalopram Hydrobromide (Celexa) 40 mg PO DAILY [facility] Last Admin: 05/28/18 09:17 Dose: 40 mg Dextrose (D50w Syringe) 0 gm IV X1 PRN; Protocol PRN Reason: Hypoglycemia Enoxaparin Sodium (Lovenox) 40 mg SC DAILY@0600 [facility] Last Admin: 05/28/18 06:44 Dose: 40 mg Glucagon () 1 mg IM .X1 PRN PRN Reason: Hypoglycemia Insulin Human Lispro (Humalog Kwikpen (Bkc)) 0 unit SC [facility]; Protocol Last Admin: 05/28/18 06:45 Dose: Not Given Levothyroxine Sodium (Synthroid) 50 mcg PO DAILY@0600 [facility] Last Admin: 05/28/18 06:44 Dose: 50 mcg Magnesium Hydroxide (Milk Of Magnesia) 30 ml PO DAILY PRN PRN Reason: Constipation Metformin HCl (Glucophage Xr) 1,000 mg PO BIDCM [facility] Last Admin: 05/28/18 09:16 Dose: 1,000 mg Metoprolol Succinate (Toprol Xl (Beta Marsha)) 50 mg PO DAILY [facility] Last Admin: 05/27/18 10:34 Dose: 50 mg Morphine Sulfate () 0.5 mg IV Q6H PRN PRN PRN Reason: PAIN Last Admin: 05/26/18 06:43 Dose: 0.5 mg Nutritional Formula (Lactose Free) (Glucerna Shake) 120 ml PO TIDCM [facility] Last Admin: 05/28/18 09:16 Dose: 120 ml Ondansetron HCl (Zofran) 4 mg IV Q8H PRN PRN PRN Reason: Nausea Oxycodone HCl (Oxyir) 5 mg PO Q4H PRN PRN PRN Reason: SEVERE PAIN (6-1010) Last Admin: 05/27/18 21:19 Dose: 5 mg Sodium Chloride () 5 - 30 ml IV UD PRN PRN Reason: SALINE FLUSH Last Admin: 05/28/18 01:02 EST Dose: 10 ml Warfarin Sodium (Coumadin (Pbkc)) 6 mg PO DAILY@1700 [facility] Last Admin: 05/27/18 17:16 Dose: 6 mg Medical Necessity - Tobacco Use Smoking Status: Never smoker Assessment/Plan All Active Problems (Last Reviewed 05/26/18 @ 00:25 by Edvin Cruz MD) Fracture of right femur (Acute) Atrial fibrillation with RVR (Acute) 1. right femoral neck fracture. * s/p closed pinning on 05/[address] Griffin * touchdown weight bearing for 2 weeks then partial 50% for 4 weeks. * PT/OT * pt prefers to go home w [facility], rather than SNF. Recommend she discuss with her family. * Clarified pain medication: pt will need to notify staff when she is in pain to obtain medications 2. Afib with RVR * currently rate controlled * was not on flecanide but Toprol XL 50mg * DW Dr. Mata (patient's primary pediatric surgeon) who feels that her medication should remain the same despite the fluctuations. * She may follow up with Dr. Mata as outpt. * may have been exacerbated by fall and pain 3. toxic encephalopathy * resolved * 2/2 ativan * pt very sensitive to medications * dozing off during encounter * d/w family, that with narcotics there needs to be a balance b/w pain control and function. Informed them that I will not be increasing her pain medications at this time. 4. DVT proph: * LMWH until INR therapeutic 5. Disposition: * Patient appropriate for SNF * However, patient insistent on going home with [facility]. * Patient was max assist with Sit to stand and to stand pivot * Expressed to patient that we will follow her wishes, though told her that going home now, even with home care, would be a bad idea. * Daughter present in room during this encounter who was also concerned about patient going directly home. Greater than 35 minutes of which greater than 50% of the time was discussing disposition options and recommendations with the patient and her daughter. Code Visit Inpatient E&M: 27144 Subs Hosp L3
[2018-05-28 11:16] LABS: Bedside Glucose 142 mg/dL (70-110)
[2018-05-28] MEDS: Metoprolol(XL)Succ 50 MG Tablet PO (12:25)
[2018-05-28] MEDS: oxyCODONE 5 MG Tablet PO ×2 (16:47→21:47)
[2018-05-28 16:50] LABS: Bedside Glucose 112 mg/dL (70-110)
[2018-05-28] MEDS: Atorvastatin Calcium 20 MG Tablet PO (21:47)
[2018-05-28 22:41] LABS: Bedside Glucose 122 mg/dL (70-110)
[2018-05-29] VITALS (8 sets, daily range): BP systolic 132–139; BP diastolic 72–82; PULSE 110–120; RESP 14–18; TEMP 36.6–37.1; O2SAT 92–97
[2018-05-29] MEDS: Acetaminophen 500 MG Tablet PO ×2 (06:39→11:27)
[2018-05-29] MEDS: Enoxaparin 40 MG/0.4 ML Syringe SC (06:40)
[2018-05-29] MEDS: Levothyroxine 50 MCG Tablet PO (06:42)
[2018-05-29] MEDS: Insulin Lispro 100 UNIT/ML INSULN.PEN SC ×2 (06:45→11:27)
[2018-05-29 07:06] LABS: Bedside Glucose 150 mg/dL (70-110)
--- NOTE | 2018-05-29 07:17 | PCM.PN.ORT ---
Patient Problems: Active and Suspected Problems (Last Reviewed 05/26/18 @ 00:25 by Edvin Cruz MD) Fracture of right femur (Acute) Atrial fibrillation with RVR (Acute) Subjective: The patient was sitting in bed upon examination. Patient denies any chest pain, shortness of breath, dizziness, lightheadedness, nausea or vomiting, or calf pain. Pain is controlled on medications. No adverse overnight events. Family member present during evaluation. Objective: Vital signs stable and afebrile. Patient is able to plantarflex and dorsiflex actively. Sensation is intact to light touch to saphenous, sural, superficial and deep peroneal, and tibial distribution. Dressing is clean dry and intact. Negative Homans bilaterally, negative signs and symptoms of DVT. - Physical Exam General: Alert, Cooperative, No apparent distress Vital Signs Temp Pulse Resp BP Pulse Ox 97.8 F 115 H 14 139/77 H 97 05/29/18 01:40 05/29/18 02:59 05/29/18 01:40 05/29/18 01:40 05/29/18 01:40 Oxygen Flow Rate (L/min) 2 Oxygen Delivery Method Nasal Cannula Weight: 90.2 kg Body Mass Index (BMI) 33.0 Finger Stick Blood Glucose 151 Intake and Output for Last 24 Hours 05/28/18 05/28/18 05/29/18 00:59 23:59 23:59 Intake Total 400 / 400 Output Total 500 / 500 Balance -100 / -100 Laboratory Tests Past 24 Hrs 05/28/18 05/28/18 07:40 07:40 WBC 6.2 RBC 3.70 L Hgb 11.0 L Hct 35.0 L MCV 94.6 MCH 29.7 MCHC 31.4 L RDW 12.8 RDW Differential 44.6 H Plt Count 164 MPV 10.2 Immature Gran % (Auto) 0.200 Neut % (Auto) 61.4 Lymph % (Auto) 25.2 [place] % (Auto) 5.8 Eos % (Auto) 7.1 H Baso % (Auto) 0.3 Absolute Neuts (auto) 3.8 Absolute Lymphs (auto) 1.57 Total Counted Not Reportable PT 16.4 H INR 1.3 POC Glucose 05/29/18 05/28/18 05/28/18 06:45 21:51 16:38 POC Glucose 150 H 122 H 112 H 05/28/18 11:06 POC Glucose 142 H Medical Necessity - Tobacco Use Smoking Status: Never smoker Assessment/Plan All Active Problems (Last Reviewed 05/26/18 @ 00:25 by Edvin Cruz MD) Fracture of right femur (Acute) Atrial fibrillation with RVR (Acute) 1. S/P closed reduction percutaneous pinning right hip POD #3 2. Continue Pain Medications: Tylenol and OxyIR 3. DVT Prophylaxis: Manage per medicine. Patient has been placed back on her warfarin postoperatively. 4. PT/OT: Patient will be touchdown weightbearing for 2 weeks postoperatively followed by partial weightbearing 50% for an additional 4 weeks 5. Encouraged Incentive Spirometry 6. Continue postoperative medical management per medicine 7. Disposition: Orthopedically stable, at this time we will sign off of patient. If there are any concerns or questions please contact orthopedics. I again had a lengthy discussion with the patient and family member today with regards to postoperative discharge. Patient wishes to go home but I do not feel this would be the most appropriate decision with patient's limitations in weightbearing restrictions and fall risk. Case management involved with appropriate placement. Patient will continue with touchdown weightbearing right lower extremity, help assist to bedside chair. Patient will need to schedule two-week postoperative follow-up with Dr. Farrukh Griffin for x-rays and incision check.
[2018-05-29 07:46] LABS: International Normalized Ratio 1.3
[2018-05-29] MEDS: Glucerna Shake 120 ML LIQUID PO ×2 (08:06→11:27)
[2018-05-29] MEDS: Citalopram 40 MG TABLET PO (08:07)
[2018-05-29] MEDS: Metoprolol(XL)Succ 50 MG Tablet PO (08:08)
[2018-05-29] MEDS: Magnesium Hydroxide 30 ML UDC PO (08:09)
[2018-05-29 11:41] LABS: Bedside Glucose 150 mg/dL (70-110)
--- NOTE | 2018-05-29 12:25 | CASEMGMT ---
Per AMALIA Parks, referral needs sent to [facility]. Called and left voicemail for Edita, madeline, that referral would be faxed and that patient could potentially D/C today. Referral faxed to [facility], confirmation received. Lali Magdaleno LPN Clinical Support
--- NOTE | 2018-05-29 13:08 | CASEMGMT ---
Received phone call from Edita at [facility]. Facility is able to accept patient and patient could go today if medically ready. Voicemail for AMALIA Parks notifying of same. Lali Magdaleno LPN Clinical Support
--- NOTE | 2018-05-29 13:34 | PCM.TXEXTCAR ---
- Diet 05/27/18 04:51 Diet: 1800 stephie ADA Is pt able to select menu?: yes - Routine Orders/Code Status Routine Lab Work: INR - daily times seven days, notify attending when INR greater or equal to 2, - - fingerstick blood sugars fasting and 4 pm daily times 7 days- notify attending if blood sugar over 200 Code Status: Full Code - Wound(s) Right Arm Wound Type: Abrasion RIGHT LATERAL HIP Wound Type: Surgical Incision Dressing Change: Dry Sterile Dressing - Therapies Weight Bearing: Toe-touch weight bearing - until seen by Dr. Griffin in two weeks Extremity Affected:: Right Lower Physical Therapy: Eval and Treat Occupational Therapy: Eval and Treat - Problem/Diagnosis (1) Subcapital fracture of neck of right femur Status: Acute Current Visit: Yes (2) snf current use of anticoagulant Status: Chronic Current Visit: No (3) Chronic atrial fibrillation Status: Chronic Current Visit: No (4) Hypertension Status: Chronic Current Visit: No (5) Hyperlipidemia Status: Chronic Current Visit: No (6) Anxiety Status: Chronic Current Visit: Yes (7) Depression Status: Chronic Current Visit: Yes (8) Type 2 diabetes mellitus Status: Chronic Current Visit: Yes - Allergies/Procedures Done in Hospital Allergies/Adverse Reactions: Allergies enalapril Allergy (Severe, Verified 10/03/17 23:02) ANGIOEDEMA latex Allergy (Severe, Verified 10/03/17 23:02) Hives, rash Penicillins Allergy (Severe, Verified 10/03/17 23:02) Hives shellfish derived Allergy (Severe, Verified 10/03/17 23:02) Hives lisinopril Allergy (Verified 10/03/17 23:02) Shortness of breath cortisone Adverse Reaction (Severe, Verified 10/03/17 23:02) Knee swelled and severe pain with injection of cortisone IVP dye Allergy (Severe, Uncoded 10/03/17 23:02) Head and neck burning adhesive bandages Allergy (Intermediate, Uncoded 10/03/17 23:02) Burning rash narcotics Adverse Reaction (Severe, Uncoded 10/03/17 23:02) confusion Procedures: - - closed reduction percutaneous pinning right hip - Type of Care/Length of Stay Estimated LOS: Convalescent Care Less Than 30 days Type of Care Needed: Skilled Rehab Potential: Good Prognosis: Good - Additional Orders/Day of Discharge H&P will serve as current which was dated: 05/25/18 Day of Discharge: 05/29/18 - Follow Up Care Primary Care Physician: Darek Aquino MD [Primary Care Provider] -
--- NOTE | 2018-05-29 14:15 | CASEMGMT ---
Social Work Note AMALIA met with pt and pt's present to confirm discharge plans. Per PT/OT pt is max assist x2 for transfers and bed mobility. AMALIA educated pt and pt's to [facility] and TCU as per previous notes, pt was interested in staying at [facility]. AMALIA explained that [facility] would require pt to do three hours of therapy a day but that it would be broken up into different times throughout the day. Pt states that she feel like she wouldn't be able to handle three hours of therapy a day. AMALIA explained that TCU doesn't have a bed until Tuesday and medically pt is able to discharge today. AMALIA educated pt and pt's to SNF in [place] area. AMALIA informed pt and her that pt has Medicare and can go to any SNF. Pt and pt's state interest in [facility] and would like a referral sent there and would like information on facility. AMALIA updated Rolf Magdaleno in quality management to send referral. AMALIA provided pt and pt's information on [facility]. AMALIA received message from Rolf Magdaleno that [facility] is able to accept pt. AMALIA updated physician, pt, and pt's family (pt's daughter) of this. Per pt and her , they would like transportation set up via wheelchair van. AMALIA explained that pt's insurance doesn't cover wheelchair van and they will get billed for transportation. Pt and pt's state understanding. AMALIA faxed completed discharge paperwork including transfer to extended care facility, signed medication list and any scripts. Originals in SNF folder and copy on pt's chart. AMALIA completed [facility] in [facility]. Original in SNF folder and copy on pt's chart. AMALIA set up transportation through [facility] via wheelchair van for 3:00pm. Transportation form on SNF folder and copy on pt's chart. AMALIA updated RN Rebeca, pt and pt's family (pt's daughter) pf transportation time. AMALIA placed a call to Edita at [facility] and left her a message informing her of transportation time. Plan: Pt to discharge to [facility] skilled today at 3:00pm with [facility] transporting via wheelchair van. Tamela Echols UTILIZATION MANAGEMENT RN, INFORMATION SCIENTIST
[2018-05-29] MEDS: oxyCODONE 5 MG Tablet PO (15:03)
--- NOTE | 2018-05-29 15:29 | NURSING ---
DERA Perdue called report to nurse whom will be taking over care for this patient
--- NOTE | 2018-05-31 09:59 | PCM.DC.SUM ---
Discharge Date and Diagnosis Date of Admission: 05/25/18 Date of Discharge: 05/29/18 - Primary Discharge Diagnosis #1 acute right subcapital hip fracture secondary to osteoporosis #2 acute fracture of the right inferior pubic ramus secondary to osteoporosis #3 chronic atrial fibrillation with RVR #4 toxic encephalopathy secondary to Ativan administration #5 Alzheimer's dementia-new diagnosis #6 type 2 diabetes #7 depression #8 hypertension #9 hyperlipidemia #10 chronic anticoagulation due to chronic atrial fibrillation #11 osteoporosis #12 moderate pulmonary hypertension - Secondary Discharge Diagnosis Chronic Problems (Last Reviewed 05/26/18 @ 00:25 by Edvin Cruz MD) Anxiety (Chronic) Depression (Chronic) Type 2 diabetes mellitus (Chronic) History of right knee joint replacement (Chronic) longterm current use of anticoagulant (Chronic) Chronic atrial fibrillation (Chronic) Hypertension (Chronic) Hyperlipidemia (Chronic) Hospital Course and Treatment Operations: - - Closed reduction with percutaneous pinning of the right hip-05/26/18 Summary of Care Provided: The patient is a 77 year old female who was seen in the emergency room at [facility] after experiencing a fall and causing injury to her right hip. Patient was on chronic Coumadin usage for chronic atrial fibrillation, workup in the emergency room included an x-ray which showed a possible right femoral neck fracture, a hip CT was performed which demonstrated a subcapital right hip fracture and a pubic rami fracture. Chest x-ray was unremarkable, basic labs showed an INR of 2.4, EKG showed atrial fibrillation with a rate of 106. FFP was ordered at the request of orthopedic surgery, patient was admitted to PCU due to her tachycardia and atrial fibrillation and for right subcapital hip fracture, prior to being discharged from the emergency room to the floor patient became tachycardic and somnolent and required supplemental oxygen briefly. She was placed on a Cardizem drip briefly and her flecainide was continued. Echocardiogram was obtained which showed a preserved EF and moderate pulmonary hypertension. Patient was somnolent and it was felt that she had toxic encephalopathy secondary to Ativan administration, her pain medications were closely monitored. On 05/26/18, patient underwent surgical repair of her hip fracture with the placement of screws. Postoperatively there were no complications, it was felt that the patient would benefit from short-term placement in a alf facility after she was evaluated by PT and OT here at the hospital. Patient exhibited some continued confusion and I talked at length with the patient's daughters and the daughters confirmed that the patient has had memory issues over the past year-I felt that this was probable dementia that had not been diagnosed. On 05/29/18, patient was seen and examined: On examination she appeared in good health and spirits. Vital signs as documented. Skin warm and dry and without overt rashes. Neck without JVD. Lungs clear. Heart exam notable for irregular heart rate, normal sounds and absence of murmurs or rubs. Abdomen unremarkable and without evidence of organomegaly, masses, or abdominal aortic enlargement. Extremities-no significant edema was noted in either extremity. Neuro: Cranial nerves II through XII are grossly intact, no focal motor deficits were noted, sensation to light touch and pinprick was intact. Psych: Patient was alert, she responded appropriately to questions but was a poor informant. She did not appear to be anxious or depressed. On 05/29/18, patient was seen and examined and felt to be stable for discharge to a skilled care facility for continuing care - Physical Exam Vital Signs Temp Pulse Resp BP Pulse Ox 98.4 F 114 H 18 134/72 H 94 05/29/18 15:28 05/29/18 15:28 05/29/18 15:28 05/29/18 15:28 05/29/18 15:28 Oxygen Flow Rate (L/min) 1 Oxygen Delivery Method Room Air Weight: 90.2 kg Body Mass Index (BMI) 33.0 Finger Stick Blood Glucose 151 Intake and Output for Last 24 Hours 05/29/18 05/30/18 05/31/18 23:59 23:59 23:59 Intake Total 900 / 900 Output Total 500 / 500 Balance 400 / 400 Home Medications: Medications to take at Discharge Aspirin E.C. [Ecotrin] 81 mg PO DAILY@0800 07/17/17 Levothyroxine [Synthroid] 50 mcg PO DAILY 07/17/17 Citalopram Hydrobromide [Citalopram HBr] 40 mg PO DAILY 05/26/18 Metformin(XR) [Glucophage Xr] 1,000 mg PO BID 05/26/18 Metoprolol Succinate 50 mg PO DAILY 05/26/18 Simvastatin [Zocor] 40 mg PO DAILY 05/26/18 Warfarin Sodium 6 mg PO DAILY 05/26/18 Calcium Carbonate/Vitamin D3 [Os-Vishnu 500+D3 Caplet] 1 each PO BID #1 tablet 05/29/18 Citalopram [Celexa] 40 mg PO DAILY tablet 05/29/18 Enoxaparin [Lovenox] 40 mg SC DAILY@0600 syringe 05/29/18 Glucerna Shake 120 ml PO TIDCM liquid 05/29/18 Oxycodone [Oxyir] 5 mg PO Q4H PRN PRN 5 Days #30 tab 05/29/18 Following Prescrptions Were Given to Patient: Oxycodone [Oxyir] 5 mg PO Q4H PRN PRN 5 Days #30 tab PRN Reason: Severe Pain (-05/03) Calcium Carbonate/Vitamin D3 [Os-Vishnu 500+D3 Caplet] 1 each PO BID #1 tablet Primary Care Physician: Darek Aquino MD [Primary Care Provider] - Disposition: Senior Care facility Minutes spent on discharge:: 32 Patient Condition:: Stable Medical Necessity - Tobacco Use Smoking Status: Never smoker Meaningful Use Info Meaningful Use Diagnoses (Choose all that apply): None applicable Code Visit Inpatient E&M: 46796 Disch Hosp
--- NOTE | 2018-05-31 10:09 | DS.PCM_ITS ---
Discharge Date and Diagnosis Date of Admission: 05/25/18 Date of Discharge: 05/29/18 - Primary Discharge Diagnosis #1 acute right subcapital hip fracture secondary to osteoporosis #2 acute fracture of the right inferior pubic ramus secondary to osteoporosis #3 chronic atrial fibrillation with RVR #4 toxic encephalopathy secondary to Ativan administration #5 Alzheimer's dementia-new diagnosis #6 type 2 diabetes #7 depression #8 hypertension #9 hyperlipidemia #10 chronic anticoagulation due to chronic atrial fibrillation #11 osteoporosis #12 moderate pulmonary hypertension - Secondary Discharge Diagnosis Chronic Problems (Last Reviewed 05/26/18 @ 00:25 by Edvin Cruz MD) Anxiety (Chronic) Depression (Chronic) Type 2 diabetes mellitus (Chronic) History of right knee joint replacement (Chronic) snf current use of anticoagulant (Chronic) Chronic atrial fibrillation (Chronic) Hypertension (Chronic) Hyperlipidemia (Chronic) Hospital Course and Treatment Operations: - - Closed reduction with percutaneous pinning of the right hip- 05/26/18 Summary of Care Provided: The patient is a 77 year old female who was seen in the emergency room at [facility] after experiencing a fall and causing injury to her right hip. Patient was on chronic Coumadin usage for chronic atrial fibrillation, workup in the emergency room included an x-ray which showed a possible right femoral neck fracture, a hip CT was performed which demonstrated a subcapital right hip fracture and a pubic rami fracture. Chest x-ray was unremarkable, basic labs showed an INR of 2.4, EKG showed atrial fibrillation with a rate of 106. FFP was ordered at the request of orthopedic surgery, patient was admitted to PCU due to her tachycardia and atrial fibrillation and for right subcapital hip fracture, prior to being discharged from the emergency room to the floor patient became tachycardic and somnolent and required supplemental oxygen briefly. She was placed on a Cardizem drip briefly and her flecainide was continued. Echocardiogram was obtained which showed a preserved EF and moderate pulmonary hypertension. Patient was somnolent and it was felt that she had toxic encephalopathy secondary to Ativan administration, her pain medications were closely monitored. On 05/26/18, patient underwent surgical repair of her hip fracture with the placement of screws. Postoperatively there were no complications, it was felt that the patient would benefit from short- term placement in a prison facility after she was evaluated by PT and OT here at the hospital. Patient exhibited some continued confusion and I talked at length with the patient's daughters and the daughters confirmed that the patient has had memory issues over the past year-I felt that this was probable dementia that had not been diagnosed. On 05/29/18, patient was seen and examined: On examination she appeared in good health and spirits. Vital signs as documented. Skin warm and dry and without overt rashes. Neck without JVD. Lungs clear. Heart exam notable for irregular heart rate, normal sounds and absence of murmurs or rubs. Abdomen unremarkable and without evidence of organomegaly, masses, or abdominal aortic enlargement. Extremities-no significant edema was noted in either extremity. Neuro: Cranial nerves II through XII are grossly intact, no focal motor deficits were noted, sensation to light touch and pinprick was intact. Psych: Patient was alert, she responded appropriately to questions but was a poor informant. She did not appear to be anxious or depress ed. On 05/29/18, patient was seen and examined and felt to be stable for discharge to a skilled care facility for continuing care - Physical Exam Vital Signs Temp Pulse Resp BP Pulse Ox 98.4 F 114 H 18 134/72 H 94 05/29/18 15:28 05/29/18 15:28 05/29/18 15:28 05/29/18 15:28 05/29/18 15:28 Oxygen Flow Rate (L/min) 1 Oxygen Delivery Method Room Air Weight: 90.2 kg Body Mass Index (BMI) 33.0 Finger Stick Blood Glucose 151 Intake and Output for Last 24 Hours 05/29/18 05/30/18 05/31/18 23:59 23:59 23:59 Intake Total 900 / 900 Output Total 500 / 500 Balance 400 / 400 Home Medications: Medications to take at Discharge Aspirin E.C. [Ecotrin] 81 mg PO DAILY@0800 07/17/17 Levothyroxine [Synthroid] 50 mcg PO DAILY 07/17/17 Citalopram Hydrobromide [Citalopram HBr] 40 mg PO DAILY 05/26/18 Metformin(XR) [Glucophage Xr] 1,000 mg PO BID 05/26/18 Metoprolol Succinate 50 mg PO DAILY 05/26/18 Simvastatin [Zocor] 40 mg PO DAILY 05/26/18 Warfarin Sodium 6 mg PO DAILY 05/26/18 Calcium Carbonate/Vitamin D3 [Os-Vishnu 500+D3 Caplet] 1 each PO BID #1 tablet 05/29/18 Citalopram [Celexa] 40 mg PO DAILY tablet 05/29/18 Enoxaparin [Lovenox] 40 mg SC DAILY@0600 syringe 05/29/18 Glucerna Shake 120 ml PO TIDCM liquid 05/29/18 Oxycodone [Oxyir] 5 mg PO Q4H PRN PRN 5 Days #30 tab 05/29/18 Following Prescrptions Were Given to Patient: Oxycodone [Oxyir] 5 mg PO Q4H PRN PRN 5 Days #30 tab PRN Reason: Severe Pain (-05/03) Calcium Carbonate/Vitamin D3 [Os-Vishnu 500+D3 Caplet] 1 each PO BID #1 tablet Primary Care Physician: Darek Aquino MD [Primary Care Provider] - Disposition: [facility] Minutes spent on discharge:: 32 Patient Condition:: Stable Medical Necessity - Tobacco Use Smoking Status: Never smoker Meaningful Use Info Meaningful Use Diagnoses (Choose all that apply): None applicable Code Visit Inpatient E&M: 64701 Disch Hosp
== END 2018-05-29 15:30 | disposition skilled nursing facility (03) | DRG 956 ==
LOC: ED 17:54 → PCU 21:32 → MS3 05-28 14:13
PROVIDERS: Anesthesiology; Specialist; Admitting Provider Hospitalist; Emergency Provider Emergency Medicine; Family Provider Internal Medicine; PCP Internal Medicine; Visit Provider Internal Medicine
PROC: 0QS634Z Reposition Right Upper Femur with Internal Fixation Device, Percutaneous Approach (ICD-10-PCS; principal; 2018-05-26 07:00)
DX: S72.011A Unspecified intracapsular fracture of right femur, initial encounter for closed fracture (principal); S32.591A Other specified fracture of right pubis, initial encounter for closed fracture; G92 Toxic encephalopathy; I48.2 Chronic atrial fibrillation; Z79.01 Long term (current) use of anticoagulants; E78.5 Hyperlipidemia, unspecified; I10 Essential (primary) hypertension; Z96.651 Presence of right artificial knee joint; W01.0XXA Fall on same level from slipping, tripping and stumbling without subsequent striking against object, initial encounter; Y92.481 Parking lot as the place of occurrence of the external cause; M54.5 Low back pain; T42.4X5A Adverse effect of benzodiazepines, initial encounter
CPT/HCPCS: 36415; 70450; 71045; 72100; 73502; 73600; 73700; 76000; 80048; 80053; 82306; 82607; 82962; 83036; 84443; 85025; 85027; 85610; 85730; 86900; 93005; 93306; 94762; 97110; 97140; 97162; 97167; 97530; 97535; 99283; C1713; J7120; A4216; J2405; J3490

== ENCOUNTER → 2018-08-28 16:32 | Outpatient (CLI) | payer MEDICARE, BC, SELFPAY ==
--- NOTE | 2018-08-28 16:39 | CT_ITS ---
STUDY: CT HIP WITHOUT CONTRAST - RIGHT REASON FOR EXAM: Female, 77 years old. Right hip pain post fracture May 2018 RADIATION DOSAGE (If Supplied By Facility): CTDIvol = ( ) mGy, DLP = ( ) mGycm TECHNIQUE: Transaxial imaging of the right hip was performed without oral contrast, and without intravenous administration of contrast material. Multiplanar coronal and sagittal images were reformatted. Individualized dose optimization techniques were used for this CT. COMPARISON: CT right hip without contrast as well as plain film AP pelvis and additional views of the right hip May 25, 2018; intraoperative fluoroscopic spot films of the right hip May 26, 2018. FINDINGS: Normal visualized urinary bladder. Normal visualized small intestine. Normal visualized colon. There is no pelvic fluid. There is no pelvic mass lesion or lymphadenopathy. Normal visualized uterus. There is stable mild atherosclerotic calcification of the pelvic and common femoral arteries. Normal abdominal wall. There is a healed incision along the lateral soft tissues of the right hip/upper thigh. Mildly lobulated 2.6 x 1.8 x 2.0 cm soft tissue density a few centimeters deep to the incision just below the level of the lesser trochanter is likely a small residual hematoma. Normal visualized right iliac wing, sacroiliac joint, and right sacrum. Normal right superior pubic ramus. There is a healing/healed nondisplaced fracture of the right inferior pubic ramus with callus formation. Normal pubic symphysis. Normal right ischium. Healing subcapital fracture of the femoral neck remains mildly impacted, but with improved angulation of the fracture fragments status post ORIF with 3 metal screws. These are seen passing in an upward oblique fashion through the trochanteric region of the femur along the femoral neck to the femoral head. The cephalad extent of a femoral intramedullary gerard is also again identified, extending up to the level of the lesser trochanter. The gerard is fixed by 2 metal screws in the proximal femoral diaphysis. There is mild osteoarthritic spur formation of the acetabular rim. Normal hip joint. CT/Extremity Lower without Contra IMPRESSION: 1. Healing/healed, impacted subcapital fracture of the femoral neck status post ORIF with 3 metal screws. There is also a healing/healed nondisplaced fracture of the right inferior pubic ramus with callus formation. 2. Mild degenerative spurring of the lateral acetabular rim. The right hip joint space is normal. 3. 2.6 cm probable residual hematoma or other soft tissue scar in the subcutaneous tissues of the upper right thigh a few centimeters within the healed incision site. 4. Mild iliofemoral atherosclerotic calcific plaquing noted. Electronically Signed: Bishop Flower MD at 19:33 EST , Service support ,
== END ==
PROVIDERS: Family Provider Internal Medicine; PCP Internal Medicine; Referring Provider Specialist; Visit Provider Specialist
DX: S72.034D Nondisplaced midcervical fracture of right femur, subsequent encounter for closed fracture with routine healing (principal)
CPT/HCPCS: 73700